=== PATIENT | male | born 1970 | race Caucasian/White ===

== ENCOUNTER 2023-07-04 09:14 | Outpatient (OUT) | payer OTHER, SELFPAY ==
--- NOTE | 2023-07-04 10:49 | CT_ITS ---
[address] [address] Patient Name: ALKA GASTELUM MRN: [id number] date: 1970 Sex: M Assigned Patient Location: CT Current Patient Location: Accession/Order Number: [id number] Exam Date: 07/04/2023 10:32 Report Date: 07/05/2023 08:14 At the request of: KATE CHERRY Procedure: CT abdomen pelvis wo/w con EXAMINATION: CT abdomen pelvis wo/w con HISTORY: Malignant neoplasm of kidney excluding renal pelvis C54.9 COMPARISON: TECHNIQUE: Axial, Coronal, and Sagittal images were created without and with non-ionic intravenous contrast material. Dose reduction techniques were achieved by using automated exposure control and/or adjustment of mA and/or kV according to patient size and/or use of iterative reconstruction technique. FINDINGS: LUNG BASES: No visible pulmonary or pleural disease. LIVER: Diffuse hypoattenuation consistent with hepatic steatosis. No focal mass BILIARY: No dilatation or calcification. PANCREAS: No lesion, fluid collection, ductal dilatation, or atrophy. SPLEEN: No enlargement or focal lesion. ADRENALS: No mass or enlargement. KIDNEYS: Normal right. Contour deformity of the left consistent with wedge nephrectomy. No new mass observed. No hydronephrosis or obstructing nephrolithiasis BOWEL/MESENTERY: Nonobstructive bowel gas pattern. Moderate hiatal hernia. AORTA/VASCULAR: No aortic aneurysm. Mild calcific atherosclerosis RETROPERITONEUM: No mass or adenopathy. LYMPH NODES: No adenopathy. URINARY BLADDER: No visible focal wall thickening, lesion, or calculus. PELVIC ORGANS: Central prostate calcifications ABDOMINAL WALL: No mass or hernia. BONES: No bony lesion or fracture. OTHER: Negative. CT/CT abdomen pelvis wo/w con IMPRESSION: No new evidence of local recurrence or metastatic disease Electronically authenticated by: MEGHANN VITAL Date: 07/05/2023 08:14
== END 2023-07-04 09:15 | disposition home or self-care (01) ==
LOC: CT 09:14
PROVIDERS: PCP Family Medicine; Visit Provider Urology
DX: C64.9 Malignant neoplasm of unspecified kidney, except renal pelvis (principal)
CPT/HCPCS: 74178; Q9967

== ENCOUNTER 2023-07-31 16:48 | Outpatient (OUT) | payer OTHER, SELFPAY ==
--- NOTE | 2023-07-31 | XR_ITS ---
The [address] [address] Patient Name: ALKA GASTELUM MRN: [id number] date: 1970 Sex: M Assigned Patient Location: LAB Current Patient Location: Accession/Order Number: [id number] Exam Date: 07/31/2023 16:54 Report Date: 08/02/2023 09:30 At the request of: KATE CHERRY Procedure: XR chest 2V EXAMINATION: XR chest 2V HISTORY: Malignant neoplasm of kidney; COMPARISON: XR chest 06/22/2022 FINDINGS: LUNGS: No significant pulmonary parenchymal abnormalities. VASCULATURE: No increased pulmonary vasculature. PLEURA: No pneumothorax, effusion, or pleural thickening. CARDIAC: No cardiomegaly or cardiac silhouette abnormality. MEDIASTINUM: No visible mass or adenopathy. BONES: No fracture or visible bone lesion. OTHER: Negative. XR/XR chest 2V IMPRESSION: 1. No appreciable nodules or infiltrates. Stable chest. Electronically authenticated by: BABITA VALLADARES Date: 08/02/2023 09:30
--- OUTSIDE RECORDS SUMMARY | 2023-07-31 17:00 | XMS_ITS | CCD ---
Author Organization [facility] Care Team Providers Care Associate Spa Director Name Role Phone Patrick Terrell Primary Care Provider EDWIGE PATEL Referring Unavailable PATRICK TERRELL Primary Care Unavailable KATE RAM Referring Unavailable PATRICK TERRELL Primary Care Unavailable KATE RAM Admitting Unavailable KATE RAM Attending Unavailable PATRICK TERRELL Primary Care Unavailable PATRICK DAWSON Consulting Unavailable MEGHANN MAI Consulting Unavailable Lacey Luciano Unavailable RADHA, DR RAMOS Primary Care Unavailable SHAYLA ., DR BROTHERS Admitting Unavailable SHAYLA ., DR BROTHERS Attending Unavailable MILTON .JONATHON Consulting UnavailAMY Campoverde Consulting Unavailable MISC, DR ENRIQUEZ Admitting Unavailable MISJuliann, DR ENRIQUEZ Attending Unavailable RADHA, DR RAMOS Primary Care Unavailable MISC, DR ENRIQUEZ Consulting Unavailable EDITH CAMARA Consulting Unavailable MIKAELA LUCAS Consulting Unavailable MISC, DR ENRIQUEZ Admitting Unavailable MISC, DR ENRIQUEZ Attending Unavailable RADHA, DR RAMOS Primary Care Unavailable MISC, DR ENRIQUEZ Consulting Unavailable BABITA VALLADARES Consulting Unavailable AMY GUEVARA Consulting Unavailable Eladio Garcia MD Primary Care Provider [phone] JANY MEDEIROS Attending Unavailable JANY MEDEIROS Attending Unavailable JANY MEDEIROS Attending Unavailable Medications Current Medications Medication Drug Class(es) Dates Sig (Normalized) Sig (Original) Acetaminophen (1 source) Start: 08-04-2019 acetaminophen (TYLENOL) tablet 650 mg Acetaminophen / oxyCODONE (3 sources) Opioid Agonist Start: 08-04-2019 oxyCODONE-acetaminop hen (PERCOCET) 5-325 MG per tablet 1 tablet Start: 08-04-2019 End: 08-09-2019 take 1 tablet by mouth every six hours as needed for pain oxyCODONE-acetaminophen (PERCOCET) 5-325 MG per tablet Indications: Cancer of kidney, left (HCC) Take 1 tablet by mouth every 6 hours as needed for Pain for up to 5 days. 30 tablet 0 08/04/2019 08/09/2019 Active acyclovir 800 mg oral tablet (6 sources) Herpesvirus Nucleoside Analog DNA Polymerase Inhibitor, Herpes Simplex Virus Nucleoside Analog DNA Polymerase Inhibitor, Herpes Zoster Virus Nucleoside Analog DNA Polymerase Inhibitor Start: 12-19-2022 take 1 tablet by mouth once daily in the morning acyclovir (Zovirax) 800 MG tablet Indications: Genital herpes simplex, unspecified site take 1 tablet by mouth every morning 30 tablet 0 12/19/2022 Active End: 08-05-2019 Acyclovir 800 MG (Prior Auth #:[id number]) Oral for 30 Active [id number] 200 actuat albuterol 0.09 mg/actuat metered dose inhaler (1 source) beta2-Adrenergic Agonist Start: 01-28-2021 take 2 puff(s) by inhalation four times daily as needed Albuterol Sulfate HFA 108 (90 Base) MCG/ACT 2 puffs Inhalation qid prn Jan, Active aspirin 81 mg chewable tablet (7 sources) Platelet Aggregation Inhibitor, Nonsteroidal Anti-inflammatory Drug Start: 08-05-2019 aspirin chewable tablet 81 mg aspirin 81 MG EC tablet 1 (one) time each day at the same time 0 Active Baby Aspirin Act vinnie azithromycin 250 mg oral tablet (7 sources) Macrolide Antimicrobial Start: 12-20-2022 End: 03-22-2023 azithromycin (Zithromax) 250 MG tablet Indications: COVID-19 2 tabs x 1 day, 1 tab daily x 4 days 6 tablet 0 01/25/2023 03/22/2023 Discontinued (Other) Start: 01-28-2021 Zithromax 250 MG 2 tablet on the first day, then 1 tablet daily for 4 days Orally Once a day for 5 day(s) Jan, Active cholecalciferol 0.05 mg oral tablet (3 sources) Vitamin D cholecalciferol (Vitamin D-3) 50 MCG (1999 UT) tablet 1 (one) time each day at the same time 0 Active 24 hr dilTIAZem hydrochloride 180 mg extended release oral capsule (9 sources) Calcium Channel Linette Start: 01-06-20 23 take 1 capsule by mouth in the morning, then take 1 capsule by mouth every twenty-four hours dilTIAZem CD (Cardizem CD) 180 MG 24 hr capsule Take 180 mg by mouth in the morning. 0 01/05/2023 Active Start: 08-05-2019 dilTIAZem (CAR DIZEM CD) extended release capsule 180 mg docusate sodium 100 mg oral capsule (3 sources) Start: 08-04-2019 End: 09-03-2019 take 100 mg by mouth twice daily 100 mg, Oral, 2 TIMES DAILY, First dose on Sun08/04/19 at 1430 Do not crush or break. 1 ml hydrALAZINE hydrochloride 20 mg/ml injection (1 source) Arteriolar Vasodilator Start: 08-04-2019 hydrALAZINE (APRESOLINE) injection 10 mg losartan potassium 100 mg oral tablet (8 sources) Angiotensin 2 Receptor Linette Start: 08-05-2019 losartan (COZAAR) tablet 100 mg 24 hr metoprolol succinate 25 mg extended release oral tablet (8 sources) beta-Adrenergic Linette Start: 01-10-2023 take 1 tablet by mouth every twenty-four hours in the morning metoprolol succinate XL (Toprol-XL) 25 MG 24 hr tablet Indications: Essential hypertension, benign (CMS/HCC) Take 1 tablet (25 mg) by mouth in the morning and 1 tablet (25 mg) before bedtime. 180 tablet 0 01/10/2023 Active Start: 08-05-2019 metoprolol suc cinate (TOPROL XL) extended release tablet 25 mg take 1 tablet by twice daily metoprolol succinate (TOPROL XL) 50 MG extended release tablet Take 50 mg by mouth 2 times daily 0 Active morphine (PF) injection 2 mg (1 source) Start: 08-04-2019 morphine (PF) injection 2 mg 24 hr nicotine 0.292 mg/hr transdermal system (1 source) Cholinergic Nicotinic Agonist Start: 08-04-2019 nicotine (NICODERM CQ) 7 MG/24HR 1 patch [place] 3-6-9 capsule (3 sources) [place] 3-6-9 caps ule as directed Orally 0 Active omeprazole 20 mg delayed release oral capsule (8 sources) Proton Pump Inhibitor omeprazole (PriLOSEC) [address] capsule 1 (one) time each day at the same time 0 Active Omeprazole Activ e End: 08-04-2019 take 1 capsule by mouth once daily omeprazole (PRILOSEC) 10 MG delayed release capsule Take 10 mg by mouth daily 0 08/04/2019 Discontinued (Medication Clarified) End: 08-05-2019 take 1 tablet by mouth once daily omeprazole (PRILOSEC OTC) 20 MG tablet Take 20 mg by mouth daily 0 08/05/2019 Discontinued (Stop Taking at Discharge) 2 ml ondansetron 2 mg/ml injection (1 source) Serotonin-3 Receptor Antagonist Start: 08-04-2019 4 mg, Intravenous, EVERY 6 HOURS PRN, Nausea, Starting Sun08/04/19 at 1409 pantoprazole 40 mg delayed release oral tablet (1 source) Proton Pump Inhibitor Start: 08-05-2019 take 40 mg by mouth once daily before breakfast 40 mg, Oral, DAILY BEFORE BREAKFAST, First dose on Sun08/05/19 at 0700 Do not crush or break. Substituted for Omeprazole (PRILOSEC). predniSONE 20 mg oral tablet (1 source) Start: 01-28-2021 take 1 tablet by mouth every twelve hours predniSONE 20 MG 1 tablet Orally bid for 5 day(s) Jan, Active 3 ml sodium chloride 9 mg/ml injection (3 sources) Start: 08-04-2019 10 mL, Intravenous, EVERY 12 HOURS SCHEDULED (2 times per day), First dose on Sun08/04/19 at 2100 Start: 08-04-2019 take 10 mL intraveno us route once as needed 10 mL, Intravenous, PRN, Line Care, After every IV line use, Starting Sun08/04/19 at 1409 Start: 08-04-2019 End: 08-05-2019 Intravenous, at 125 mL/hr, CONTINUOUS, Starting Sun08/04/19 at 1430 Completed/Discontinued Medications Medication Drug Class(es) Dates Sig (Normalized) Sig (Original) calcium chloride 0.0014 meq/ml / potassium chloride 0.004 meq/ml / sodium chloride 0.103 meq/ml / sodium lactate 0.028 meq/ml injectable solution (1 source) Start: 08-05-2019 End: 08-04-2019 lactated ringers infusion Start: 08-05-2019 End: 08-04-2019 lactated ringers infusion ceFAZolin (ANCEF) 1 g in dextrose 5 % 50 mL IVPB (mini-bag) (1 source) Start: 08-04-2019 End: 08-05-2019 1 g, Intravenous, EVERY 8 HOURS, 3 doses, First dose on Sun08/04/19 at 1500, Last dose on Sun08/05/19 at 0700 2 ml fentaNYL 0.05 mg/ml injection (1 source) Opioid Agonist Start: 08-04-2019 End: 08-04-2019 fentaNYL (SUBLIMAZE) injection 25 mcg 1 ml heparin sodium, porcine 5000 unt/ml prefilled syringe (1 source) Unfractionated Heparin, Anti-coagulant Start: 08-04-2019 End: 08-04-2019 heparin (porcine) injection 5,000 Units Start: 08-04-2019 End: 08-04-2019 heparin (porcine) injection 5,000 Units 1 ml HYDROmorphone hydrochloride 2 mg/ml cartridge (1 source) Opioid Agonist Start: 08-04-2019 End: 08-04-2019 HYDROmorphone (DILAUDID) injection 0.25 mg methylPREDNISolone 4 mg oral tablet (1 source) Corticosteroid Start: 03-20-2020 Medrol (Jimmie) 4 MG half of daily dose in the morning with food and the rest at night with food Orally Mar, Not-Taking traZODone hydrochloride 50 mg oral tablet (2 sources) Serotonin Reuptake Inhibitor End: 08-04-2019 take 1 tablet by mouth once daily traZODone (DESYREL) 50 MG tablet Take 50 mg by mouth nightly 0 08/04/2019 Discontinued (Patient Choice) Problems Active Problems Problem Classification Problem Date Documented Date Episodic/Chronic Cancer of kidney and renal pelvis (10 sources) Malignant tumor of kidney; Translations: [Malignant neoplasm of unspecified kidney, except renal pelvis] Onset: 08-04-2019 08-04-2019 Chronic Disorders of lipid metabolism (3 sources) Hyperlipidemia; Translations: [Hyperlipidemia, unspecified] Onset: 01-24-2023 01-24-2023 Chronic Esophageal disorders (6 sources) Gastroesophageal reflux disease; Translations: [Gastro-esophageal reflux disease without esophagitis] Onset: 01-24-2023 08-04-2019 Chronic Essential hypertension (6 sources) Hypertensive disorder; Translations: [Essential hypertension] Onset: 01-24-2023 08-04-2019 Chronic Other endocrine disorders (3 sources) Hypoglycemia; Translations: [Hypoglycemia, unspecified] Onset: 01-24-2023 01-24-2023 Chronic Other male genital disorders (2 sources) Disorder of penis; Translations: [Other specified disorders of penis] Onset: 03-21-2023 03-21-2023 Chronic Other upper respiratory infections (3 sources) Sinusitis; Translations: [Chronic sinusitis, unspecified] Onset: 01-24-2023 01-24-2023 Chronic Residual codes; unclassified (8 sources) Obstructive sleep apnea syndrome; Translations: [Obstructive sleep apnea (adult) (pediatric)] Onset: 01-24-2023 08-04-2019 Chronic Residual codes; unclassified (5 sources) Insomnia; Translations: [Insomnia, unspecified] Onset: 03-21-2023 08-04-2019 Episodic Substance-related disorders (6 sources) Nicotine withdrawal; Translations: [Nicotine dependence, other tobacco product, uncomplicated] Onset: 08-04-2019 08-04-2019 Chronic Viral infection (3 sources) Genital herpes simplex; Translations: [Herpesviral infection of urogenital system, unspecified] Onset: 01-24-2023 01-24-2023 Chronic Past or Other Problems Problem Classification Problem Date Documented Da te Episodic/Chronic Genitourinary symptoms and ill-defined conditions (1 source) Hematuria, unspecified; Translations: [HEMATURIA UNSPECIFIED] Onset: 01-12-2022 Episodic Immunizations and screening for infectious disease (1 source) Contact with and (suspected) exposure to other viral communicable diseases Onset: 01-28-2021 Resolved: 01-28-2021 Episodic Other aftercare (1 source) long-term (current) use of aspirin; Translations: [CUSTODIAL CURRENT USE OF ASPIRIN] Onset: 01-12-2022 Episodic Other aftercare (1 source) Other skilled nursing (current) drug therapy; Translations: [OTH PUBLIC HOUSING INTERVIEWER CURRENT DRUG THERAPY] Onset: 01-12-2022 Episodic Other upper respiratory infections (1 source) Acute sinusitis, unspecified; Translations: [ACUTE SINUSITIS UNSPECIFIED] Onset: 01-12-2022 Episodic Residual codes; unclassified (5 sources) Chews tobacco ; Translations: [Tobacco use] Onset: 08-04-2019 08-04-2019 Episodic Spondylosis; intervertebral disc disorders; other back problems (4 sources) Cervicalgia; Translations: [CERVICALGIA] Onset: 01-10-2022 Episodic Viral infection (1 source) COVID-19 Onset: 01-28-2021 Resolved: 01-28-2021 Results Test Name Value Interpretation Reference Range Facility CT ABD/PELV W CONon 06-23-19 CT ABD/PELV W CON EXAM: CT ABD/PELV W CON HISTORY: Primary malignant neoplasm of kidney COMPARISON: 07/14/2021 TECHNIQUE: Axial CT imaging was performed through the abdomen and pelvis with intravenous contrast. Multiplanar reformats were performed. Dose reduction techniques were achieved by using automated exposure control and/or adjustment of mA and/or kV according to patient size and/or use of iterative reconstruction technique. FINDINGS: Lung bases: Lung bases are clear. No pleural effusion. GI upper: Moderate hiatal hernia. Liver: Hepatic steatosis. Normal size and contour. Gallbladder: No significant abnormality. No cholelithiasis. Biliary system: No intra or extrahepatic biliary ductal dilatation. Spleen: Normal size. Pancreas: Unremarkable. Adrenal glands: Normal adrenal glands. Kidneys/ureters: Normal contours. No hydronephrosis. No nephrolithiasis or ureterolithiasis. Status post left renal wedge resection with cortical scarring, postsurgical changes. No evidence of tumor recurrence at the surgical bed. On delayed phase, no filling defect is seen in the collecting system. Vessels: No aneurysm. Lymph Nodes: No lymphadenopathy. Small bowel: No wall thickening or dilatation. Colon: No wall thickening or dilatation. Appendix: No findings of appendicitis. Peritoneal cavity: No free fluid or pneumoperitoneum. Lower : The urinary bladder is unremarkable. Bones: No acute bony abnormality. Soft tissues: No acute finding. Additional findings: None. IMPRESSION: No evidence of tumor recurrence or metastasis. No abnormal lymphadenopathy. Moderate hiatal hernia. Electronically authenticated by: MIAKELA LUCAS Date: 2022-06-22 13:36 Normal [facility] XR CHEST 2 Von 06-22-2022 XR CHEST 2 V EXAM: XR CHEST 2 V HISTORY: Primary malignant neoplasm of kidney COMPARISON: None. TECHNIQUE: AP view of the chest. FINDINGS: The cardiomediastinal silhouette is normal. The lungs are clear. There is no pneumothorax. No pleural effusion is noted. The osseous structures are intact. IMPRESSION: No acute cardiopulmonary process. Probable esophageal hiatal hernia. Electronically authenticated by: EDITH JAX Date: 2022-06-22 13:47 Normal [facility] BNPon 01-10-2022 Natriuretic peptide B (Bld) [Mass/Vol] 14.0 pg/mL Normal <=900.0 [facility] Comment on above: Performed By: #### P TT, PT #### [facility] [address] [place] [address] Dr. Katelyn Forbes CBC AUTO DIFFon 01-10-2022 BASO # 0.1 103/ul Normal 0.0-0.1 [facility] Comment on above: Performed By: #### C BC #### [facility] [address] [place] [address] Dr. Katelyn Forbes Basophils/100 WBC (Bld) 0.7 % Normal 0.2-2.0 [facility] Comment on above: Performed By: #### C BC #### [facility] [address] [place] [address] Dr. Katelyn Forbes EO # 0.3 103/ul Normal 0.0-0.7 [facility] Comment on above: Performed By: #### C BC #### [facility] [address] [place] [address] Dr. Katelyn Forbes Eosinophils/100 WBC (Bld) 3.0 % Normal 0.9-7.0 [facility] Comment on above: Performed By: #### C BC #### [facility] [address] [place] [address] Dr. Katelyn Forbes Erythrocyte distribution width (RBC) [Ratio] 12.5 % Normal 11.0-15.0 [facility] Comment on above: Performed By: #### C BC #### [facility] [address] [place] [address] Dr. Katelyn Forbes Hematocrit (Bld) [Volume fraction] 39.8 % Critically low 42.0-54.0 [facility] Comment on above: Performed By: #### C BC #### [facility] [address] [place] [address] Dr. Katelyn Forbes Hemoglobin (Bld) [Mass/Vol] 13.9 g/dL Critically low 14.0-18.0 [facility] Comment on above: Performed By: #### C BC #### [facility] [address] [place] [address] Dr. Katelyn Forbes IG # 0.02 10e3/ul Normal 0.00-0.03 [facility] Comment on above: Performed By: #### C BC #### [facility] [address] [place] [address] Dr. Katelyn Forbes IG % 0.2 % Normal 0.0-0.5 [facility] Comment on above: Performed By: #### C BC #### [facility] [address] [place] [address] Dr. Katelyn Forbes LYMPH # 3.2 103/ul Normal 1.2-3.8 [facility] Comment on above: Performed By: #### C BC #### [facility] [address] [place] [address] Dr. Katelyn Forbes Lymphocytes/100 WBC (Bld) 39.1 % Normal 20.5-60.0 [facility] Comment on above: Performed By: #### C BC #### [facility] [address] [place] [address] Dr. Katelyn Forbes MANUAL DIFF REQ NO Normal [facility] Comment on above: Performed By: #### C BC #### [facility] [address] [place] [address] Dr. Katelyn Forbes MCH (RBC) [Entitic mass] 29.1 pg Normal 25.9-34.0 [facility] Comment on above: Performed By: #### C BC #### [facility] [address] [place] [address] Dr. Katelyn Forbes MCHC (RBC) [Mass/Vol] 34.9 g/dL Normal 29.9-35.2 [facility] Comment on above: Performed By: #### C BC #### [facility] [address] [place] [address] Dr. Katelyn Forbes MCV (RBC) [Entitic vol] 83.3 fL Normal 80.0-94.0 [facility] Comment on above: Performed By: #### C BC #### [facility] [address] [place] [address] Dr. Katelyn Forbes MONO # 0.7 103/ul Normal 0.3-0.8 [facility] Comment on above: Performed By: #### C BC #### [facility] [address] [place] [address] Dr. Katelyn Forbes Monocytes/100 WBC (Bld) 9.0 % Normal 1.7-12.0 [facility] Comment on above: Performed By: #### C BC #### [facility] [address] [place] [address] Dr. Katelyn Forbes NEUT # 3.9 103/ul Normal 1.4-6.5 [facility] Comment on above: Performed By: #### C BC #### [facility] [address] [place] [address] Dr. Katelyn Forbes Neutrophils/100 WBC (Bld) 48.0 % Normal 43.0-75.0 [facility] Comment on above: Performed By: #### C BC #### [facility] [address] [place] [address] Dr. Katelyn Forbes Platelet mean volume (Bld) [Entitic vol] 8.8 fL Critically low 9.5-13.5 [facility] Comment on above: Performed By: #### C BC #### [facility] [address] [place] [address] Dr. Katelyn Forbes PLT 227 103/ul Normal 150-450 [facility] Comment on above: Performed By: #### C BC #### [facility] [address] [place] [address] Dr. Katelyn Forbes RBC 4.78 106/ul Normal 4.70-6.10 [facility] Comment on above: Performed By: #### C BC #### [facility] [address] [place] [address] Dr. Katelyn Forbes WBC 8.2 103/ul Normal 4.0-11.0 [facility] Comment on above: Performed By: #### C BC #### [facility] [address] [address] [address] HEAD WO CONon 01-10-2022 CT HEAD WO CON EXAMINATION: CT HEAD WO CON HISTORY: HEADACHE for 3 weeks. COMPARISON: None. TECHNIQUE: CT examination of the head without IV contrast. Sagittal and coronal reconstructions were obtained. Dose reduction techniques were achieved by using automated exposure control and/or adjustment of mA and/or kV according to patient size and/or use of iterative reconstruction technique. FINDINGS: The ventricles are not enlarged, the lateral ventricles are slightly asymmetric but within normal variation, and the third ventricles in the midline. The sylvian fissures and cortical sulci are unremarkable. There is a small low attenuation fluid collection seen in the insular temporal lobe on the left as best seen in image 18 series 5, and image 29 of series 6. There is no evidence of an intracranial hemorrhage, mass lesion or apparent acute infarct. The cerebellum and visualized brainstem are intact. The paranasal sinuses are relatively well-developed. There is evidence of acute sinusitis with fluid and air bubbles in the right maxillary sinus. Several of the ethmoid air cells are completely opacified with mucosal thickening in the remainder. A small amount of mucosal thickening extends into the frontal sinuses on the right. The middle ears are aerated. The mastoid sinuses are clear. There is no apparent skull fracture. IMPRESSION: There is no evidence of an intracranial hemorrhage, mass lesion or apparent acute infarct. A small lesion in the insular temporal lobe on the left may be a small remote infarct or possibly prominence of the perivascular spaces. There is evidence of acute and chronic sinusitis involving the right maxillary sinus and several of the ethmoid air cells. Mucosal thickening is seen in other ethmoid air cells, extending into the frontal sinuses. There is no evidence of a skull fracture. Direct comparison with a previous study would be helpful in determining the chronicity of these findings. Electronically authenticated by: AMY GUEVARA Date: 2022-01-10 16:42 Normal [facility] PROF 14(COMP METB)on 022 Albumin [Mass/Vol] 3.9 g/dL Normal 3.4-5.0 [facility] Comment on above: Performed By: #### C MP, TSH, HSTROPN, BNP #### [facility] [address] [place] [address] Dr. Katelyn Forbes Albumin/Globulin [Mass ratio] 1.1 {ratio} Normal [facility] Comment on above: Performed By: #### C MP, TSH, HSTROPN, BNP #### [facility] [address] [place] [address] Dr. Katelyn Forbes ALP [Catalytic activity/Vol] 84 U/L Normal 46-116 [facility] Comment on above: Performed By: #### C MP, TSH, HSTROPN, BNP #### [facility] [address] [place] [address] Dr. Katelyn Forbes ALT [Catalytic activity/Vol] 57 U/L Normal 16-63 [facility] Comment on above: Performed By: #### C MP, TSH, HSTROPN, BNP #### [facility] [address] [place] [address] Dr. Katelyn Forbes Anion gap [Moles/Vol] 10.0 mmol/L Normal [facility] Comment on above: Performed By: #### C MP, TSH, HSTROPN, BNP #### [facility] [address] [place] [address] Dr. Katelyn Forbes AST [Catalytic activity/Vol] 23 U/L Normal 15-37 [facility] Comment on above: Performed By: #### C MP, TSH, HSTROPN, BNP #### [facility] [address] [place] [address] Dr. Katelyn Forbes Bilirubin [Mass/Vol] 0.3 mg/dL Normal 0.2-1.0 [facility] Comment on above: Performed By: #### C MP, TSH, HSTROPN, BNP #### [facility] [address] [place] [address] Dr. Katelyn Forbes Calcium [Mass/Vol] 8.5 mg/dL Normal 8.5-10.1 [facility] Comment on above: Performed By: #### C MP, TSH, HSTROPN, BNP #### [facility] [address] [place] [address] Dr. Katelyn Forbes [place] [Moles/Vol] 103 mmol/L Normal 98-107 [facility] Comment on above: Performed By: #### C MP, TSH, HSTROPN, BNP #### [facility] [address] [place] [address] Dr. Katelyn Forbes CO2 [Moles/Vol] 28.9 mmol/L Normal 21.0-32.0 [facility] Comment on above: Performed By: #### C MP, TSH, HSTROPN, BNP #### [facility] [address] [address] [address] Katelyn Forbes Creatinine [Mass/Vol] 0.95 mg/dL Normal 0.70-1.30 [facility] Comment on above: Performed By: #### C MP, TSH, HSTROPN, BNP #### [facility] [address] [place] [address] Dr. Katelyn Forbes EGFR-AF [place] >60 Normal >=60 [facility] Comment on above: Performed By: #### C MP, TSH, HSTROPN, BNP #### [facility] [address] [place] [address] Dr. Katelyn Forbes EGFR-NON AF GREENLANDIC >60 Normal >=60 [facility] Comment on above: Performed By: #### C MP, TSH, HSTROPN, BNP #### [facility] [address] [place] [address] Dr. Katelyn Forbes Globulin (S) [Mass/Vol] 3.4 g/dL Normal [facility] Comment on above: Performed By: #### C MP, TSH, HSTROPN, BNP #### [facility] [address] [place] [address] Dr. Katelyn Forbes Glucose [Mass/Vol] 103 mg/dL Normal 74-106 [facility] Comment on above: Performed By: #### C MP, TSH, HSTROPN, BNP #### [facility] [address] [address] [address] Katelyn Forbes Potassium [Moles/Vol] 3.9 mmol/L Normal 3.5-5.1 [facility] Comment on above: Performed By: #### C MP, TSH, HSTROPN, BNP #### [facility] [address] [address] [address] Katelyn Forbes Protein [Mass/Vol] 7.3 g/dL Normal 6.4-8.2 [facility] Comment on above: Performed By: #### C MP, TSH, HSTROPN, BNP #### [facility] [address] [place] [address] Dr. Katelyn Forbes Sodium [Moles/Vol] 138 mmol/L Normal 136-145 [facility] Comment on above: Performed By: #### C MP, TSH, HSTROPN, BNP #### [facility] [address] [place] [address] Dr. Katelyn Forbes Urea nitrogen [Mass/Vol] 23.0 mg/dL Critically high 7.0-18.0 [facility] Comment on above: Performed By: #### C MP, TSH, HSTROPN, BNP #### [facility] [address] [place] [address] Dr. Katelyn Forbes Urea nitrogen/Creatinine [Mass ratio] 24.2 mg/mg Normal [facility] Comment on above: Performed By: #### C MP, TSH, HSTROPN, BNP #### [facility] [address] [place] [address] Dr. Katelyn Forbes PROTIMEon 01-10-2022 INR Coag (PPP) [Relative time] 1.02 {INR} Normal [facility] Comment on above: Performed By: #### P TT, PT #### [facility] [address] [place] [address] Dr. Katelyn Forbes INR GUIDELINES SEE BELOW Normal [facility] Comment on above: Result Comment: PETRA RED INR: 2.0 - 3.0 CONDITIONS NOT LISTED BELOW 2.5 - 3.5 FOR PROSTHETIC HEART VALVE REPLACEMENT 2.5 - 3.5 RECURRENT THROMBOSIS Performed By: #### P TT, PT #### [facility] [address] [place] [address] Dr. Katelyn Forbes PT Coag (PPP) [Time] 11.0 s Normal 9.0-11.6 [facility] Comment on above: Performed By: #### P TT, PT #### [facility] [address] [address] [address] Katelyn Forbes PTTon 01-10-2022 aPTT Coag (Bld) [Time] 25.0 s Normal 22.3-36.2 [facility] Comment on above: Performed By: #### P TT, PT #### [facility] [address] [place] [address] Dr. Katelyn Forbes TROPONIN, HIGH SENSITIVITYon 01-10-2022 HSTROP 6.1 pg/mL Normal 4.0-76.1 [facility] Comment on above: Result Comment: CUT- OFF POINTS HAVE BEEN ESTABLISHED BASED ON THE FOURTH UNIVERSAL DEFINITIONS OF MYOCARDIAL INFARCTION. THE UPPER REFERENCE LIMIT (URL) OF TROPONIN, DEFINED THE 99TH PERCENTILE OF cTnI DISTRIBUTION IN A REFERENCE POPULATION, HAS BEEN CONFIRMED THE DECISION THRESHOLD FOR [place] DIAGNOSIS. Performed By: #### P TT, PT #### [facility] [address] [place] [address] Dr. Katelyn Forbes TSHon 01-10-2022 TSH 0.737 uIU/mL Normal 0.358-3.740 [facility] Comment on above: Performed By: #### P TT, PT #### [facility] [address] [place], [place] [id number] Dr. Katelyn Forbes XR CHEST 1 Von 01-10-2022 XR CHEST 1 V EXAM: XR CHEST 1 V a t 1559 hours HISTORY: CHEST PAIN, UNSPECIFIED COMPARISON: 07/14/2021 TECHNIQUE: AP upright portable chest x-ray FINDINGS: The heart is not enlarged and the vasculature is not distended. No acute infiltrate, effusion or pneumothorax is identified. The osseous structures are intact. A small hiatal hernia is again noted. IMPRESSION: No acute infiltrate or evidence of cardiac decompensation. The overall appearance of the chest is unchanged. Electronically authenticated by: AMY GUEVARA Date: 2022-01-10 16:36 Normal [facility] CT ABD/PELV WO W CONon 07-14 CT ABD/PELV WO W CON EXAMINATION: CT ABD/PELV WO W CON HISTORY: Primary malignant neoplasm of kidney , follow-up COMPARISON: CT abdomen pelvis 03/24/2020 TECHNIQUE: Axial, Coronal, and Sagittal images were created without and with IV contrast. Dose reduction techniques were achieved by using automated exposure control and/or adjustment of mA and/or kV according to patient size and/or use of iterative reconstruction technique. FINDINGS: LUNG BASES: No visible pulmonary or pleural disease. LIVER: No enlargement, atrophy, abnormal density, or significant focal lesion. BILIARY: No dilatation or calcification. PANCREAS: No lesion, fluid collection, ductal dilatation, or atrophy. SPLEEN: No enlargement or focal lesion. ADRENALS: No mass or enlargement. KIDNEYS: Stable wedge resection from lower pole lateral aspect of left kidney. No mass, obstruction, or calcification. BOWEL/MESENTERY: Large hiatal hernia with at least half of the stomach above the diaphragm. No visible mass, obstruction, or bowel wall thickening. AORTA/VASCULAR: No aneurysm or dissection. RETROPERITONEUM: No mass or adenopathy. LYMPH NODES: No adenopathy. URINARY BLADDER: No visible focal wall thickening, lesion, or calculus. PELVIC ORGANS: No visible mass. Pelvic organs appropriate for patient age. ABDOMINAL WALL: Tiny fat filled supraumbilical midline hernia. BONES: No bony lesion or fracture. OTHER: Negative. IMPRESSION: 1. Prior wedge resection of left kidney with stable surgical changes. No findings to suggest recurrent or metastatic disease. 2. Large hiatal hernia. Electronically authenticated by: BABITA VALLADARES Date: 2021-07-14 16:19 Normal [facility] XR CHEST 2 Von 07-14-2021 XR CHEST 2 V EXAM: XR CHEST 2 V HISTORY: Primary malignant neoplasm of kidney COMPARISON: 05/30/2010. TECHNIQUE: PA and lateral chest x-ray FINDINGS: The heart is not enlarged and the vasculature is not distended. No acute infiltrate, effusion or pneumothorax is identified. Opacity is seen projecting over the lower heart which has the appearance of a hiatal hernia. IMPRESSION: No acute infiltrate or evidence of cardiac decompensation. A hiatal hernia is now present, and the overall appearance of the chest is otherwise unchanged. Electronically authenticated by: AMY GUEVARA Date: 2021-07-14 14:18 Normal [facility] Complete Blood Count with Au to Diffon 04-14-2022 Basophils (Bld) [#/Vol] 0.08 10*3/uL Normal 0.00-0.20 [facility] Comment on above: Performed By: #### L IPD, CMP, CBCAD #### [facility] [address], [place] [id number] Basophils/100 WBC (Bld) 1.3 % Normal [facility] Comment on above: Performed By: #### L IPD, CMP, CBCAD #### [facility] [address], [place] [id number] Eosinophils (Bld) [#/Vol] 0.29 10*3/uL Normal 0.02-0.50 [facility] Comment on above: Performed By: #### L IPD CMP, CBCAD #### [facility] [address], [place] [id number] Eosinophils/100 WBC (Bld) 4.7 % Normal [facility] Comment on above: Performed By: #### L IPD CMP, CBCAD #### [facility] [address], [place] [id number] Erythrocyte distribution width (RBC) [Ratio] 12.8 % Normal 11.0-15.0 [facility] Comment on above: Performed By: #### L IPD CMP, CBCAD #### [facility] [address], [place] [id number] Hematocrit (Bld) [Volume fraction] 42.3 % Normal 38.5-50.0 [facility] Comment on above: Performed By: #### L IPD, CMP, CBCAD #### [facility] [address], [place] [id number] Hemoglobin (Bld) [Mass/Vol] 14.2 g/dL Normal 13.0-17.1 [facility] Comment on above: Performed By: #### L IPD, CMP, CBCAD #### [facility] [address], [place] [id number] Lymphocytes (Bld) [#/Vol] 2.8 10*3/uL Normal 0.9-3.9 [facility] Comment on above: Performed By: #### L IPD, CMP, CBCAD #### [facility] [address], [place] [id number] Lymphocytes/100 WBC (Bld) 45.9 % Normal [facility] Comment on above: Performed By: #### L IPD, CMP, CBCAD #### [facility] [address], [place] [id number] MCH (RBC) [Entitic mass] 28.6 pg Normal 27.0-33.0 [facility] Comment on above: Performed By: #### L IPD, CMP, CBCAD #### [facility] [address], [place] [id number] MCHC (RBC) [Mass/Vol] 33.6 g/dL Normal 32.0-36.0 [facility] Comment on above: Performed By: #### L IPD, CMP, CBCAD #### [facility] [address], [place] [id number] MCV (RBC) [Entitic vol] 85 fL Normal 80-100 [facility] Comment on above: Performed By: #### L IPD, CMP, CBCAD #### [facility] [address], [place] [id number] Monocytes (Bld) [#/Vol] 0.5 10*3/uL Normal 0.2-0.9 [facility] Comment on above: Performed By: #### L IPD, CMP, CBCAD #### [facility] [address], [place] [id number] Monocytes/100 WBC (Bld) 8.1 % Normal [facility] Comment on above: Performed By: #### L IPD, CMP, CBCAD #### [facility] [address], [place] [id number] Neutrophils (Bld) [#/Vol] 2.4 10*3/uL Normal 1.5-7.8 [facility] Comment on above: Performed By: #### L IPD, CMP, CBCAD #### [facility] [address], [place] [id number] Neutrophils/100 WBC (Bld) 39.8 % Normal [facility] Comment on above: Performed By: #### L IPD, CMP, CBCAD #### [facility] [address], [place] [id number] Platelet mean volume (Bld) [Entitic vol] 9.60 fL Normal 7.50-12.50 [facility] Comment on above: Performed By: #### L IPD, CMP, CBCAD #### [facility] [address], [place] [id number] Platelets (Bld) [#/Vol] 233 10*3/uL Normal 140-400 [facility] Comment on above: Performed By: #### L IPD, CMP, CBCAD #### [facility] [address], [place] [id number] RBC (Bld) [#/Vol] 4.96 10*6/uL Normal 4.20-5.80 [facility] Comment on above: Performed By: #### L IPD, CMP, CBCAD #### [facility] [address], [place] [id number] RDW-SD 39.5 fL Normal 37.0-50.0 [facility] Comment on above: Performed By: #### L IPD, CMP, CBCAD #### [facility] [address], [place] [id number] WBC (Bld) [#/Vol] 6.1 10*3/uL Normal 3.8-11.0 [facility] Comment on above: Performed By: #### L IPD, CMP, CBCAD #### [facility] [address], [place] [id number] Comprehensive Metabolic Pane gary 05-26-2021 Albumin [Mass/Vol] 4.3 g/dL Normal 3.6-5.1 [facility] Comment on above: Performed By: #### L IPD, CMP, CBCAD #### [facility] [address], [place] [id number] Albumin/Globulin [Mass ratio] 2.0 {ratio} Normal 1.0-2.5 [facility] Comment on above: Performed By: #### L IPD, CMP, CBCAD #### [facility] [address], [place] [id number] ALP [Catalytic activity/Vol] 80 U/L Normal 40-129 [facility] Comment on above: Performed By: #### L IPD, CMP, CBCAD #### [facility] [address], [place] [id number] ALT [Catalytic activity/Vol] 39 U/L Normal 9-46 [facility] Comment on above: Result Comment: 01/12 Female reference range changed. Performed By: #### L IPD, CMP, CBCAD #### [facility] [address] [facility] [place] [id number] Anion gap [Moles/Vol] 16 mmol/L Normal 12-20 [facility] Comment on above: Result Comment: Effe ctive 02/17/2019 reference range changed. Performed By: #### L IPD, CMP, CBCAD #### [facility] [address], [place] [id number] AST [Catalytic activity/Vol] 20 U/L Normal 10-40 [facility] Comment on above: Performed By: #### L IPD, CMP, CBCAD #### [facility] [address], [place] [id number] Bilirubin [Mass/Vol] 0.35 mg/dL Normal 0.30-1.20 [facility] Comment on above: Performed By: #### L IPD, CMP, CBCAD #### [facility] [address], [place] [id number] BUN/CREA 20 Ratio Normal 6-22 [facility] Comment on above: Performed By: #### L IPD, CMP, CBCAD #### [facility] [address], [place] [id number] Calcium [Mass/Vol] 9.3 mg/dL Normal 8.6-10.2 [facility] Comment on above: Performed By: #### L IPD, CMP, CBCAD #### [facility] [address] [facility] [place] [id number] Chloride [Moles/Vol] 106 mmol/L Normal 98-107 [facility] Comment on above: Performed By: #### L IPD, CMP, CBCAD #### [facility] [address], [place] [id number] CO2 [Moles/Vol] 25 mmol/L Normal 20-31 [place] [facility] Comment on above: Performed By: #### L IPD, CMP, CBCAD #### [facility] [address], [place] [id number] Creatinine [Mass/Vol] 0.9 mg/dL Normal 0.7-1.4 [facility] Comment on above: Performed By: #### L IPD, CMP, CBCAD #### [facility] [address], [place] [id number] eGFRAA 115 mL/min/1.73m2 Normal >60 [facility] Comment on above: Performed By: #### L IPD, CMP, CBCAD #### [facility] [address], [place] [id number] eGFRNAA 95 mL/min/1.73m2 Normal >60 [facility] Comment on above: Performed By: #### L IPD, CMP, CBCAD #### [facility] [address], [place] [id number] Globulin (S) [Mass/Vol] 2.2 g/dL Normal 1.9-3.7 [facility] Comment on above: Performed By: #### L IPD, CMP, CBCAD #### [facility] [address], [place] [id number] Glucose [Mass/Vol] 111 mg/dL High 65-99 [facility] Comment on above: Result Comment: For FASTING Glucose --- ADA reference ranges: Normal 65-99 mg/dl Prediabetes 100-125 Diabetes >/= 126 Performed By: #### L IPD, CMP, CBCAD #### [facility] [address], [place] [id number] Potassium [Moles/Vol] 4.3 mmol/L Normal 3.5-5.5 [facility] Comment on above: Performed By: #### L IPD, CMP, CBCAD #### [facility] [address], [place] [id number] Protein [Mass/Vol] 6.5 g/dL Normal 6.1-8.1 [employer] [place] [facility] Comment on above: Performed By: #### L IPD, CMP, CBCAD #### [facility] [address], [place] [id number] Sodium [Moles/Vol] 142 mmol/L Normal 135-146 [facility] Comment on above: Performed By: #### L IPD, CMP, CBCAD #### [facility] [address], [place] [id number] Urea nitrogen [Mass/Vol] 17 mg/dL Normal 7-25 [facility] Comment on above: Performed By: #### L IPD, CMP, CBCAD #### [facility] [address], [place] [id number] Hemoglobin A1Con 05-26-2021 EAG 122.63 Normal [facility] Comment on above: Performed By: #### A 1C #### [facility] [address], [place] [id number] HbA1c (Bld) [Mass fraction] 5.9 % Normal 4.0-6.0 [facility] Comment on above: Performed By: #### A 1C #### [facility] [address], [place] [id number] Lipid Panelon 05-26-2021 Cholesterol [Mass/Vol] 173 mg/dL Normal 125-200 [facility] Comment on above: Result Comment: Low risk < 200mg/dL Borderline risk 201-239 mg/dl High risk > or equal to 240 Performed By: #### L IPD, CMP, CBCAD #### [facility] [address], [place] [id number] Cholesterol in HDL [Mass/Vol] 41 mg/dL Normal >40 [facility] Comment on above: Result Comment: High Cardiovascular Risk HDL <40 mg/dL Low Cardiovascular Risk HDL > or equal to 60 mg/dl Performed By: #### L IPD, CMP, CBCAD #### [facility] [address], [place] [id number] Cholesterol in LDL [Mass/Vol] 111 mg/dL Normal [facility] Comment on above: Result Comment: LDL ATP III CLASSIFICATION LDL less than 100 mg/dl Optimal LDL 100-129 mg/dl Near or above optimal LDL 130-159 Borderline high LDL 160-189 High LDL greater than 189 mg/dl Very High Performed By: #### L IPD, CMP, CBCAD #### [facility] [address], [place] [id number] Cholesterol in VLDL [Mass/Vol] 21 mg/dL Normal [facility] Comment on above: Performed By: #### L IPD, CMP, CBCAD #### [facility] [address], [place] [id number] Cholesterol.total/C holesterol in HDL [Mass ratio] 4 {ratio} Normal [facility] Comment on above: Performed By: #### L IPD, CMP, CBCAD #### [facility] [address], [place] [id number] Triglyceride [Mass/Vol] 107 mg/dL Normal 30-150 [facility] Comment on above: Result Comment: TRIG ATPIII CLASSIFICATIONS TRIG less than 150 mg/dl Normal TRIG 150-199 mg/dl Borderline High TRIG 200-500 mg/dl High TRIG greather than 500 mg/dl Very High Performed By: #### L IPD, CMP, CBCAD #### [facility] [address], [place] [id number] XR Foot Complete Left*on XR Foot Complete Left* HISTORY: Left foot pain FINDINGS: Mild arthritic changes involve the intertarsal and interphalangeal joints. No evidence of cortical or stress fracture is present. No focal soft tissue swelling is seen. No foreign body is visualized. IMPRESSION: 1. No cortical or stress fracture. 2. Minimal arthritis. Report reported and signed by Nikita Leyva on 05/24/2021 1218 Normal [facility] COVID Quick Testingon 2020 Result Positive path intelligence Other Coding Summaryon 03-25-2020 Coding Summary CODING DATE: 03/25/2020 [facility] STATUS: Home PAYOR: [employer] APC DESCRIPTION 5521 Level 1 Imaging without Contrast 5572 Level 2 Imaging with Contrast ADMIT DX: REASON FOR VISIT DX: C64.9 Malignant neoplasm of unspecified kidney, except renal pelvis FINAL DX: PRINCIPAL: C64.9 Malignant neoplasm of unspecified kidney, except renal pelvis SECONDARY: PYMT PROC APC STAT DESCRIPTION DOCTOR NAME DATE NOTE: The code number assigned matches the documented diagnosis and / or procedure in the patient's chart. However, the narrative phrase printed from the coding software may appear abbreviated, or result in slightly different terminology. Coded By: Josephine Mcfarland Date Saved: 03/25/2020 04:38 pm [facility] Consent Formson 03-25-2020 Consent Forms [id number] .00OTGTIFF [facility] Medication Managementon 03-15 Medication Management [id number]/ Contras ton 03-24-2020 CT Abdomen/Pelvis w/ Contrast EXAMINATION: CT Abdomen/Pelvis w/ Contrast HISTORY: Malignant neoplasm of unspecified kidney, except renal pelvis. COMPARISON: Report from CT abdomen and CT pelvis studies dated 09/02/2007. TECHNIQUE: CT examination of the abdomen and pelvis following the administration of 100 mL of Omnipaque 350 intravenous contrast. Coronal and sagittal reformations were performed. Dose reduction techniques were achieved by using automated exposure control and/or adjustment of mA and/or kV according to patient size and/or use of iterative reconstruction technique. FINDINGS: ABDOMEN: Mild atelectatic and/or fibrotic changes in the visualized lower lung roberts. Mild pleural thickening in the lower lung roberts inferomedially. No evidence of pleural effusion. Views of the liver and spleen fail to demonstrate evidence of focal mass in either organ. Mild to moderate decreased attenuation of the liver compatible with fatty infiltration. Gallbladder and adrenal glands appear grossly unremarkable. Mild atrophy and fatty infiltration of the pancreas without focal mass or ductal dilatation. Moderate to large size hiatal hernia. Remainder of the stomach is grossly unremarkable. Bowel loops appear grossly unremarkable. Atherosclerotic calcifications within portions of the abdominal aorta. No evidence of aneurysm. No evidence of adenopathy in the retroperitoneum. No obvious renal mass or obstructive uropathy. Mild flattening and thinning of the renal cortex on the left laterally compatible with postoperative change when correlated with history. Mild perirenal fatty stranding at this level laterally suggesting a mild degree of fluid and/or fibrosis. Small fat-filled anterior abdominal wall hernia in the midline at the supraumbilical level. PELVIS: Small fat-filled umbilical hernia without bowel content. Bladder appears grossly unremarkable. Prostate gland is grossly within normal limits for size with a few small calcifications noted. Small bilateral hydroceles greater on the left. Perirectal fat planes are grossly intact. Bowel loops appear grossly unremarkable. Atherosclerotic calcifications within portions of the iliofemoral arteries. No evidence of aneurysm. No evidence of adenopathy. Patient is status post appendectomy. Mild degenerative changes in the visualized lower dorsal spine and lumbar spine. IMPRESSION: CT abdomen and CT pelvis studies demonstrate grossly unremarkable postoperative changes about the left kidney as described. Adjacent small amount of fluid and/or fibrosis. Moderate to large hiatal hernia. Mild to moderate fatty infiltration of the liver. Small umbilical hernia. Small anterior abdominal wall hernia in the midline at the supraumbilical level. Small bilateral hydroceles greater on the left. Final Dictated by: Low Nye MD Dictated DT/TM: 03/24/20 10:37 Signed (Electronic Signature): Low Nye MD 03/24/20 11:30 a Technologist: Oswaldo ABAD [facility] XR Chest 2 Viewson 1 XR Chest 2 Views EXAM: CHEST 2 VIEWS HISTORY: Malignant neoplasm of kidney TECHNIQUE: PA and lateral views chest. COMPARISON: None. FINDINGS: The lungs are mildly hyperexpanded. Tiny area of discoid atelectasis or scarring in the peripheral lingula noted. There is no focal lung consolidation, pleural effusion or pneumothorax. Pulmonary vasculature is within normal limits. The cardiomediastinal silhouette is normal. There is a moderate to large hiatal hernia measuring approximately 10 cm. IMPRESSION: 1. Tiny area of peripheral lingular atelectasis or scarring. Otherwise, well-expanded and clear lungs. 2. Normal heart size. 3. 10 cm hiatal hernia. Final Dictated by: MD Hodgson Wincha Dictated DT/TM: 03/24/20 9:54 Signed (Electronic Signature): MD Hodgson Wincha 03/24/20 9:56 am Technologist: Ashlee VINCENT [facility] Provider Orderson 03-05-2020 Provider Orders [id number] .00OTGTIFF [facility] Basic Metabolic Panelon 06- Anion gap [Moles/Vol] 13 mmol/L 9 - 17 mmol/L [place], [place] Bun/Cre Ratio 13 [place], [place] Calcium [Mass/Vol] 9.2 mg/dL 8.6 - 10. 4 mg/dL [place], [place] Chloride [Moles/Vol] 101 mmol/L 98 - 107 mmol/L [place] CO2 [Moles/Vol] 23 mmol/L 20 - 31 mmol/L [place] Creatinine [Mass/Vol] 0.83 mg/dL 0.7 - 1.2 mg/dL [place] GFR >60 >60 mL/min [place] GFR Non- >60 >60 mL/min [place] GFR/1.73 sq M predicted among non-blacks MDRD (S/P/Bld) [Vol rate/Area] [place], [place] Comment on above: Average GFR for 50-5 9 years old: 93 mL/min/1.73sq m Chronic Kidney Disease: <60 mL/min/1.73sq m Kidney failure: <15 mL/min/1.73sq m eGFR calculated using average adult body mass. Additional eGFR calculator available at: http://www.Al [employer]al/multiple_crcl_2012.htm GFR/1.73 sq M predicted among non-blacks MDRD (S/P/Bld) [Vol rate/Area] NOT REPORTED [place], [place] Glucose [Mass/Vol] 130 mg/dL High 70 - 99 mg/dL [place], [place] Interpretation and review of laboratory results Abnormal [place], [place] Potassium [Moles/Vol] 4.3 mmol/L 3.7 - 5.3 mmol/L [place] Sodium [Moles/Vol] 137 mmol/L 135 - 144 mmol/L [place] Urea nitrogen [Mass/Vol] 11 mg/dL 6 - 20 mg/dL [place] Basic Metabolic Profon 08-04 (cont.) Normal [facility] Comment on above: Result Comment: Aver age GFR for 50-59 years old: 93 mL/min/1.73sq m Chronic Kidney Disease: <60 mL/min/1.73sq m Kidney failure: <15 mL/min/1.73sq m eGFR calculated using average adult body mass. Additional eGFR calculator available at: http://www.[employer].Biodesix/multiple_crcl_2012.htm Performed By: #### C MICHAEL, BMP #### [facility] [address] [place] [address] Nursery Attendant: Adi Dave MD Anion gap [Moles/Vol] 13 mmol/L Normal 9-17 [facility] Comment on above: Performed By: #### C MICHAEL, BMP #### [facility] [address] [place] [address] Nursery Attendant: Adi Dave MD BUN/CRE Ratio 13 Normal 9-20 [facility] Comment on above: Performed By: #### C MICHAEL, BMP #### [facility] [address] [place] [address] Nursery Attendant: Adi Dave MD Calcium [Mass/Vol] 9.2 mg/dL Normal 8.6-10.4 [facility] Comment on above: Performed By: #### C MICHAEL, BMP #### [facility] [address] [place] [address] Nursery Attendant: Adi Dave MD Chloride [Moles/Vol] 101 mmol/L Normal 98-107 [facility] Comment on above: Performed By: #### C MICHAEL, BMP #### [facility] [address] [place] [address] Nursery Attendant: Adi Dave MD CO2 [Moles/Vol] 23 mmol/L Normal 20-31 [facility] Comment on above: Performed By: #### C MICHAEL, BMP #### [facility] [address] [place] [address] Nursery Attendant: Adi Dave MD Creatinine [Mass/Vol] 0.83 mg/dL Normal 0.70-1.20 [facility] Comment on above: Performed By: #### C MICHAEL, BMP #### [facility] [address] [place] [address] Nursery Attendant: Adi Dave MD GFR, Amer >60 Normal >60 [facility] Comment on above: Performed By: #### C BC, BMP #### [facility] [address] [place] [address] Nursery Attendant: Adi Dave MD GFR,non Amer >60 Normal >60 [facility] Comment on above: Performed By: #### C MICHAEL, BMP #### [facility] [address] [place] [address] Nursery Attendant: Adi Dave MD Glucose [Mass/Vol] 130 mg/dL High 70-99 [facility] Comment on above: Performed By: #### C MICHAEL, BMP #### [facility] [address] [place] [address] Nursery Attendant: Adi Dave MD Potassium [Moles/Vol] 4.3 mmol/L Normal 3.7-5.3 [facility] Comment on above: Performed By: #### C BC, BMP #### [facility] [address] [place] [address] Nursery Attendant: Adi Dave MD Sodium [Moles/Vol] 137 mmol/L Normal 135-144 [facility] Comment on above: Performed By: #### C BC, BMP #### [facility] [address] [place] [address] Nursery Attendant: Adi Dave MD Urea nitrogen [Mass/Vol] 11 mg/dL Normal 6-20 [facility] Comment on above: Performed By: #### C BC, BMP #### [facility] [address] [facility] [place] [address] Nursery Attendant: Adi Dave MD Staging: NOT REPORTED Normal [facility] Comment on above: Performed By: #### C BC, BMP #### [facility] [address] [facility] [place] [address] Nursery Attendant: Adi Dave MD CBCon 08-05-2019 Erythrocyte distribution width (RBC) [Ratio] 12.7 % Normal 11.8-14.4 [facility] Comment on above: Performed By: #### C MICHAEL, BMP #### [facility] [place] [address] Nursery Attendant: Adi Dave MD Hematocrit (Bld) [Volume fraction] 43.6 % Normal 40.7-50.3 [facility] Comment on above: Performed By: #### C MICHAEL, BMP #### [facility] [address] [place] [address]. [place] [address] Nursery Attendant: Adi Dave MD Hemoglobin (Bld) [Mass/Vol] 14.1 g/dL Normal 13.0-17.0 [facility] Comment on above: Performed By: #### C MICHAEL, BMP #### [facility] [address] [place] [address]. [place] [address] Nursery Attendant: Adi Dave MD MCH (RBC) [Entitic mass] 28.6 pg Normal 25.2-33.5 [facility] Comment on above: Performed By: #### C MICHAEL, BMP #### [facility] [place] [address] Nursery Attendant: Adi Dave MD MCHC (RBC) [Mass/Vol] 32.3 g/dL Normal 28.4-34.8 [facility] Comment on above: Performed By: #### C BC, BMP #### [facility] [address] [place] [address] Nursery Attendant: Adi Dave MD MCV (RBC) [Entitic vol] 88.4 fL Normal 82.6-102.9 [facility] Comment on above: Performed By: #### C BC, BMP #### [facility] [address] [place] [address] Nursery Attendant: Adi Dave MD NRBC Automated 0.0 per 100 WBC Normal 0.0 [facility] Comment on above: Performed By: #### C MICHAEL, BMP #### [facility] [place] [address] Nursery Attendant: Adi Dave MD Platelet mean volume (Bld) [Entitic vol] 10.1 fL Normal 8.1-13.5 [facility] Comment on above: Performed By: #### C MICHAEL, BMP #### [facility] [facility] [place] [address] Nursery Attendant: Adi Dave MD Platelets (Bld) [#/Vol] 128 10*3/uL Low 138-453 [facility] Comment on above: Performed By: #### C MICHAEL, BMP #### [facility] [place] [address] Nursery Attendant: Adi Dave MD RBC (Bld) [#/Vol] 4.93 10*6/uL Normal 4.21-5.77 [facility] Comment on above: Performed By: #### C MICHAEL, BMP #### [facility] [place] [address] Nursery Attendant: Adi Dave MD WBC (Bld) [#/Vol] 16.5 10*3/uL High 3.5-11.3 [facility] Comment on above: Performed By: #### C BC, ISABEL #### [facility] [address] [place] [address] Nursery Attendant: Adi Dave MD Erythrocyte distribution width (RBC) [Ratio] 12.7 % 11.8 - 14.4 % [place] Hematocrit (Bld) [Volume fraction] 43.6 % 40.7 - 50.3 % [place] Hemoglobin (Bld) [Mass/Vol] 14.1 g/dL 13 - 17 g/dL [place] Interpretation and review of laboratory results Abnormal [place] MCH (RBC) [Entitic mass] 28.6 pg 25.2 - 33.5 pg [place] MCHC (RBC) [Mass/Vol] 32.3 g/dL 28.4 - 34.8 g/dL [place] MCV (RBC) [Entitic vol] 88.4 fL 82.6 - 102.9 fL [place] Platelet mean volume (Bld) [Entitic vol] 10.1 fL 8.1 - 13.5 fL [place] Platelets (Bld) [#/Vol] 128 10*3/uL Low [place] RBC (Bld) [#/Vol] 4.93 10*6/uL 4.21 - 5.7 7 m/uL [place] WBC (Bld) [#/Vol] 16.5 10*3/uL [place] WBC (Bld) [#/Vol] 0.0 10*3/uL 0.0 per 10 0 WBC [place] Surgical Pathologyon 020 Surgical Pathology Report -- Diagnosis -- LEFT RENAL MASS, PARTIAL NEPHRECTOMY: CLEAR CELL RENAL CELL CARCINOMA, GRADE 2/4, 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 Claudia Ball Electronically Signed Out david08/05/2019 Clinical Information Pre-op Diagnosis: LEFT RENAL MASS Operative Findings: LEFT KIDNEY CANCER Operation Performed: LEFT NEPHRECTOMY PARTIAL ROBOTIC XI WITH INTRA-OP LAP U/S WITH FORTEC Source of Specimen 1: LEFT KIDNEY CANCER Gross Description NIKITA GASTELUM, LEFT KIDNEY CANCER 5.2 x 3.5 x 2.5 cm portion of kidney. The parenchymal margin is unremarkable and inked black. The capsule is distorted but is intact. Sectioning reveals a 2.2 x 2.2 x 1.5 cm solid hemorrhagic yellow mass that distorts but does not involve the renal capsule and is 0.2 cm from the parenchymal margin. The uninvolved kidney is akins with no other lesion. Cassette summary: A-C lesion, D uninvolved kidney. tm Microscopic Description PROCEDURE: Partial nephrectomy SPECIMEN LATERALITY: Left TUMOR SIZE (LARGEST IF MULTIPLE): 2.2 cm FOCALITY: Unifocal (partial nephrectomy only) HISTOLOGIC TYPE: Clear cell renal cell carcinoma SARCOMATOID FEATURES: Negative for sarcomatoid features RHABDOID FEATURES: Negative for rhabdoid features HISTOLOGIC GRADE (WHO / ISUP): Grade 2/4 TUMOR NECROSIS: Negative for necrosis skin. TUMOR EXTENSION: Tumor limited to kidney MARGINS: Renal capsular and parenchymal margins negative. REGIONAL LYMPH NODES NUMBER EXAMINED: Not submitted NUMBER OF LYMPH NODES POSITIVE: N/A A PATHOLOGIC STAGE CLASSIFICATION: pT1a pNX PATHOLOGIC FINDINGS IN NON-NEOPLASTIC KIDNEY: Essentially normal CAP Kidney 4020 in conjunction with AJCC 8 ed. SURGICAL PATHOLOGY CONSULTATION Patient Name: NIKITA GASTELUM [facility] Rec: [id number] Path Number: [id number] [facility] [employer] [facility] ANATOMIC PATHOLOGY [address] [place] [id number] [place], [place] Basic Metabolic Panelon 06- Anion gap [Moles/Vol] 14 mmol/L 9 - 17 mmol/L [place] Bun/Cre Ratio 15 [place], [place] Calcium [Mass/Vol] 8.9 mg/dL 8.6 - 10. 4 mg/dL [place] Chloride [Moles/Vol] 99 mmol/L 98 - 107 mmol/L [place] CO2 [Moles/Vol] 25 mmol/L 20 - 31 mmol/L [place] Creatinine [Mass/Vol] 0.86 mg/dL 0.7 - 1.2 mg/dL [place] GFR >60 >60 mL/min [place] GFR Non- >60 >60 mL/min [place] GFR/1.73 sq M predicted among non-blacks MDRD (S/P/Bld) [Vol rate/Area] NOT REPORTED [place] GFR/1.73 sq M predicted among non-blacks MDRD (S/P/Bld) [Vol rate/Area] [place] Comment on above: Average GFR for 50-5 9 years old: 93 mL/min/1.73sq m Chronic Kidney Disease: <60 mL/min/1.73sq m Kidney failure: <15 mL/min/1.73sq m eGFR calculated using average adult body mass. Additional eGFR calculator available at: http://www.[employer]/multiple_crcl_2011.htm Glucose [Mass/Vol] 154 mg/dL High 70 - 99 mg/dL [place] Interpretation and review of laboratory results Abnormal [place] Potassium [Moles/Vol] 3.9 mmol/L 3.7 - 5.3 mmol/L [place] Sodium [Moles/Vol] 138 mmol/L 135 - 144 mmol/L [place] Urea nitrogen [Mass/Vol] 13 mg/dL 6 - 20 mg/dL [place] Basic Metabolic Profon 08-03 (cont.) Normal [facility] Comment on above: Result Comment: Aver age GFR for 50-59 years old: 93 mL/min/1.73sq m Chronic Kidney Disease: <60 mL/min/1.73sq m Kidney failure: <15 mL/min/1.73sq m eGFR calculated using average adult body mass. Additional eGFR calculator available at: http://www.[employer]/multiple_crcl_2012.htm Performed By: #### C BC, BMP #### [facility] [address] [place] [address] Nursery Attendant: Adi Dave MD Anion gap [Moles/Vol] 14 mmol/L Normal 9-17 [facility] Comment on above: Performed By: #### C BC, BMP #### [facility] [address] [place] [address] Nursery Attendant: Adi Dave MD BUN/CRE Ratio 15 Normal 9-20 [facility] Comment on above: Performed By: #### C BC, BMP #### [facility] [address] [place] [address] Nursery Attendant: Adi Dave MD Calcium [Mass/Vol] 8.9 mg/dL Normal 8.6-10.4 [facility] Comment on above: Performed By: #### C BC, BMP #### [facility] [address] [place] [address] Nursery Attendant: Adi Dave MD Chloride [Moles/Vol] 99 mmol/L Normal 98-107 [facility] Comment on above: Performed By: #### C BC, BMP #### [facility] [address] [place] [address] Nursery Attendant: Adi Dave MD CO2 [Moles/Vol] 25 mmol/L Normal 20-31 [facility] Comment on above: Performed By: #### C BC, BMP #### [facility] [address] [place] [address] Nursery Attendant: Adi Dave MD Creatinine [Mass/Vol] 0.86 mg/dL Normal 0.70-1.20 [facility] Comment on above: Performed By: #### C BC, BMP #### [facility] [address] [place] [address] Nursery Attendant: Adi Dave MD GFR, Amer >60 Normal >60 [facility] Comment on above: Performed By: #### C BC, BMP #### [facility] [address] [place] [address] Nursery Attendant: Adi Dave MD GFR,non Amer >60 Normal >60 [facility] Comment on above: Performed By: #### C BC, BMP #### [facility] [address] [place] [address] Nursery Attendant: Adi Dave MD Glucose [Mass/Vol] 154 mg/dL High 70-99 [facility] Comment on above: Performed By: #### C BC, BMP #### [facility] [address] [place] [address] Nursery Attendant: Adi Dave MD Potassium [Moles/Vol] 3.9 mmol/L Normal 3.7-5.3 [facility] Comment on above: Performed By: #### C BC, BMP #### [facility] [address] [place] [address] Nursery Attendant: dAi Dave MD Sodium [Moles/Vol] 138 mmol/L Normal 135-144 [facility] Comment on above: Performed By: #### C BC, BMP #### [facility] [address] [place] [address] Nursery Attendant: Adi Dave MD Urea nitrogen [Mass/Vol] 13 mg/dL Normal 6-20 [facility] Comment on above: Performed By: #### C BC, BMP #### [facility] [address] [place] [address] Nursery Attendant: Adi Dave MD Staging: NOT REPORTED Normal [facility] Comment on above: Performed By: #### C BC, BMP #### [facility] [address] [facility] [place] [address] Nursery Attendant: Adi Dave MD CBCon 08-04-2019 Erythrocyte distribution width (RBC) [Ratio] 12.8 % Normal 11.8-14.4 [facility] Comment on above: Performed By: #### C BC, BMP #### [facility] [address] [facility] [place] [address] Nursery Attendant: Adi Dave MD Hematocrit (Bld) [Volume fraction] 43.7 % Normal 40.7-50.3 [facility] Comment on above: Performed By: #### C BC, BMP #### [facility] [place] [address] Nursery Attendant: Adi Dave MD Hemoglobin (Bld) [Mass/Vol] 14.7 g/dL Normal 13.0-17.0 [facility] Comment on above: Performed By: #### C BC, BMP #### [facility] [place] [address] Nursery Attendant: Adi Dave MD MCH (RBC) [Entitic mass] 28.7 pg Normal 25.2-33.5 [facility] Comment on above: Performed By: #### C BC, BMP #### [facility] [address] [facility] [place] [address] Nursery Attendant: Adi Dave MD MCHC (RBC) [Mass/Vol] 33.6 g/dL Normal 28.4-34.8 [facility] Comment on above: Performed By: #### C BC, BMP #### [facility] [address] [facility] [place] [address] Nursery Attendant: Adi Dave MD MCV (RBC) [Entitic vol] 85.4 fL Normal 82.6-102.9 [facility] Comment on above: Performed By: #### C MICHAEL, BMP #### [facility] [address] [facility] [place] [address] Nursery Attendant: Adi Dave MD NRBC Automated 0.0 per 100 WBC Normal 0.0 [facility] Comment on above: Performed By: #### C MICHAEL, BMP #### [facility] [address] [place] [address] Nursery Attendant: Adi Dave MD Platelet mean volume (Bld) [Entitic vol] 9.2 fL Normal 8.1-13.5 [facility] Comment on above: Performed By: #### C MICHAEL, BMP #### [facility] [address] [place] [address]. [place] [address] Nursery Attendant: Adi Dave MD Platelets (Bld) [#/Vol] 221 10*3/uL Normal 138-453 [facility] Comment on above: Performed By: #### C MICHAEL, BMP #### [facility] [place] [address] Nursery Attendant: Adi Dave MD RBC (Bld) [#/Vol] 5.12 10*6/uL Normal 4.21-5.77 [facility] Comment on above: Performed By: #### C MICHAEL, BMP #### [facility] [facility] [place] [address] Nursery Attendant: Adi Dave MD WBC (Bld) [#/Vol] 13.6 10*3/uL High 3.5-11.3 [facility] Comment on above: Performed By: #### C MICHAEL, BMP #### [facility] [place] [address] Nursery Attendant: Adi Dave MD Erythrocyte distribution width (RBC) [Ratio] 12.8 % 11.8 - 14.4 % [place] Hematocrit (Bld) [Volume fraction] 43.7 % 40.7 - 50.3 % [place] Hemoglobin (Bld) [Mass/Vol] 14.7 g/dL 13 - 17 g/dL [place] Interpretation and review of laboratory results Abnormal [place] MCH (RBC) [Entitic mass] 28.7 pg 25.2 - 33.5 pg [place] MCHC (RBC) [Mass/Vol] 33.6 g/dL 28.4 - 34.8 g/dL [place] MCV (RBC) [Entitic vol] 85.4 fL 82.6 - 102.9 fL [place], [place] Platelet mean volume (Bld) [Entitic vol] 9.2 fL 8.1 - 13.5 fL [place] Platelets (Bld) [#/Vol] 221 10*3/uL [place] RBC (Bld) [#/Vol] 5.12 10*6/uL 4.21 - 5.7 7 m/uL [place] WBC (Bld) [#/Vol] 0.0 10*3/uL 0.0 per 10 0 WBC [place] WBC (Bld) [#/Vol] 13.6 10*3/uL [place] Surgical Pathologyon 020 Surgical Pathology (NOTE) -- Diagnosis -- LEFT RENAL MASS, PARTIAL NEPHRECTOMY: CLEAR CELL RENAL CELL CARCINOMA, GRADE 2/4, 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 Claudia Ball Electronically Signed Out ajb/08/05/2019 Clinical Information Pre-op Diagnosis: LEFT RENAL MASS Operative Findings: LEFT KIDNEY CANCER Operation Performed: LEFT NEPHRECTOMY PARTIAL ROBOTIC XI WITH INTRA-OP LAP U/S WITH FORT Source of Specimen 1: LEFT KIDNEY CANCER Gross Description NIKITA BEAUCHAMPLIN, LEFT KIDNEY CANCER 5.2 x 3.5 x 2.5 cm portion of kidney. The parenchymal margin is unremarkable and inked black. The capsule is distorted but is intact. Sectioning reveals a 2.2 x 2.2 x 1.5 cm solid hemorrhagic yellow mass that distorts but does not involve the renal capsule and is 0.2 cm from the parenchymal margin. The uninvolved kidney is akins with no other lesion. Cassette summary: A-C lesion, D uninvolved kidney. tm Microscopic Description PROCEDURE: Partial nephrectomy SPECIMEN LATERALITY: Left TUMOR SIZE (LARGEST IF MULTIPLE): 2.2 cm FOCALITY: Unifocal (partial nephrectomy only) HISTOLOGIC TYPE: Clear cell renal cell carcinoma SARCOMATOID FEATURES: Negative for sarcomatoid features RHABDOID FEATURES: Negative for rhabdoid features HISTOLOGIC GRADE (WHO / ISUP): Grade 2/4 TUMOR NECROSIS: Negative for necrosis skin. TUMOR EXTENSION: Tumor limited to kidney MARGINS: Renal capsular and parenchymal margins negative. REGIONAL LYMPH NODES NUMBER EXAMINED: Not submitted NUMBER OF LYMPH NODES POSITIVE: N/A A PATHOLOGIC STAGE CLASSIFICATION: pT1a pNX PATHOLOGIC FINDINGS IN NON-NEOPLASTIC KIDNEY: Essentially normal CAP Kidney 4020 in conjunction with AJCC 8 ed. SURGICAL PATHOLOGY CONSULTATION Patient Name: NIKITA GASTELUM [facility] Rec: [id number] Path Number: [id number] [facility] ANATOMIC PATHOLOGY [address] [place] [address]. [place], [place] [address] Normal [facility] Comment on above: Performed By: #### C DP, NATALY GARCÍA #### [facility] [address] [place], [place] [id number] Nursery Attendant: Adi Dave MD COVID-19on 08-02-2019 SARS-CoV-2 [place] SARS-CoV-2, PCR Not Detected Not Detected [place] Comment on above: (NOTE) The [employer] RealTime SARS-CoV-2 assay is a real-time (rt) reverse transcriptase (RT) polymerase chain reaction (PCR) test intended for the [employer] system. The SARS-CoV-2 primer and probe sets are designed to detect RNA from SARS-CoV-2 in nasopharyngeal (PROPERTY CLAIMS ADJUSTER) and oropharyngeal (OP) swabs from patients with signs and symptoms of infection who are suspected of COVID-19. Results are for the identification of SARS-CoV-2 RNA. The SARS-CoV-2 RNA is generally detectable in a nasopharyngeal and oropharyngeal swabs during the acute phase of infection. The [employer] RealTime SARS-CoV-2 assay is intended for use by qualified and trained clinical laboratory personnel specifically instructed and trained in the techniques of real-time PCR and in vitro diagnostic procedures. The [employer] RealTime SARS-CoV-2 assay is only for use under the Food and Drug Administration Emergency Use Authorization. Testing is limited to laboratories certified under the Clinical Laboratory Improvement Amendments of 1988 (CLIA), 42 U.S.C. 263a, to perform high complexity tests. Not Detected: Not detected does not preclude SARS-CoV-2 infection and should not be used as the sole basis for patient management decisions. Not detected results must be combined with clinical observations, patient history, and epidemiological information. The above 1 analytes were performed by [address] [address] SARS-CoV-2, [place], [place] Source .NASOPHARYNGEAL SWAB [place] [id number] 08-02-2019 SARS-CoV-2 Not Detected Normal Not Detected [facility] Comment on above: Result Comment: (NOT E) The [employer] RealTime SARS-CoV-2 assay is a real-time (rt) reverse transcriptase (RT) polymerase chain reaction (PCR) test intended for the [employer] system. The SARS-CoV-2 primer and probe sets are designed to detect RNA from SARS-CoV-2 in nasopharyngeal (PROPERTY CLAIMS ADJUSTER) and oropharyngeal (OP) swabs from patients with signs and symptoms of infection who are suspected of COVID-19. Results are for the identification of SARS-CoV-2 RNA. The SARS-CoV-2 RNA is generally detectable in a nasopharyngeal and oropharyngeal swabs during the acute phase of infection. The [employer] RealTime SARS-CoV-2 assay is intended for use by qualified and trained clinical laboratory personnel specifically instructed and trained in the techniques of real-time PCR and in vitro diagnostic procedures. The [employer] RealTime SARS-CoV-2 assay is only for use under the Food and Drug Administration Emergency Use Authorization. Testing is limited to laboratories certified under the Clinical Laboratory Improvement Amendments of 1988 (CLIA), 42 U.S.C. 263a, to perform high complexity tests. Not Detected: Not detected does not preclude SARS-CoV-2 infection and should not be used as the sole basis for patient management decisions. Not detected results must be combined with clinical observations, patient history, and epidemiological information. The above 1 analytes were performed by [address] [address] Performed By: #### C OVID #### [employer] [address] [address] Nursery Attendant: Hasmukh Guzmán MD [facility] [address] [place] [address] Nursery Attendant: Giovany Kaiser MD [id number] 08-01-2019 SARS-CoV-2,Rapid Normal [facility] Comment on above: Performed By: #### C OVID #### [employer] [address] [place] [address] Nursery Attendant: Hasmukh Guzmán MD [facility] [address] [place] [address] Nursery Attendant: Giovany Kaiser MD SARS-CoV-2 [facility] Comment on above: Performed By: #### C OVID #### [employer] [address] [place] [address] Nursery Attendant: Hasmukh Guzmán MD [facility] [address] [place] [address] Nursery Attendant: Giovany Kaiser MD [id number] 07-31-2019 SARS-CoV-2 Source .NASOPHARYNGEAL SWAB [facility] Comment on above: Performed By: #### C OVID #### [employer] [address] [address] Nursery Attendant: Hasmukh Guzmán MD [facility] [address] [place] [address] Nursery Attendant: Giovany Kaiser MD Cult,Urineon 07-16-2019 Cult,Urine Specimen Description .CLEAN CATCH URINE Special Requests NOT REPORTED Culture NO GROWTH Report Status FINAL 07/16/2019 Normal [facility] Comment on above: Performed By: #### U RC #### [facility] [address] [place] [address] Nursery Attendant: Adi Dave MD [facility] [address] [place], [place] [id number] Nursery Attendant: Hasmukh Guzmán MD Culture, Urineon 07-16-2019 Culture NO GROWTH [place] Special Requests NOT REPORTED [place] Specimen Description .CLEAN CATCH URINE [place] BUN & Creatinineon 0 Creatinine [Mass/Vol] 0.84 mg/dL 0.7 - 1.2 mg/dL [place] GFR >60 >60 mL/min [place] GFR Non- >60 >60 mL/min [place] GFR/1.73 sq M predicted among non-blacks MDRD (S/P/Bld) [Vol rate/Area] NOT REPORTED [place] GFR/1.73 sq M predicted among non-blacks MDRD (S/P/Bld) [Vol rate/Area] [place] Comment on above: Average GFR for 50-5 9 years old: 93 mL/min/1.73sq m Chronic Kidney Disease: <60 mL/min/1.73sq m Kidney failure: <15 mL/min/1.73sq m eGFR calculated using average adult body mass. Additional eGFR calculator available at: http://www.[employer]/multiple_crcl_2012.htm Urea nitrogen [Mass/Vol] 14 mg/dL 6 - 20 mg/dL [place] BUN + Creatinineon 0 (cont.) Normal [facility] Comment on above: Result Comment: Aver age GFR for 50-59 years old: 93 mL/min/1.73sq m Chronic Kidney Disease: <60 mL/min/1.73sq m Kidney failure: <15 mL/min/1.73sq m eGFR calculated using average adult body mass. Additional eGFR calculator available at: http://www.[employer]/multiple_crcl_2012.htm Performed By: #### C DP, BUNCRT, LYTE #### [facility] [address] [place] [address] Nursery Attendant: Adi Dave MD Creatinine [Mass/Vol] 0.84 mg/dL Normal 0.70-1.20 [facility] Comment on above: Performed By: #### C DP, BUNCRT, LYTE #### [facility] [address] [place] [address] Nursery Attendant: Adi Dave MD GFR, Amer >60 Normal >60 [facility] Comment on above: Performed By: #### C DP, BUNCRT, LYTE #### [facility] [address] [place] [address] Nursery Attendant: Adi Dave MD GFR,non Amer >60 Normal >60 [facility] Comment on above: Performed By: #### C DP, BUNCRT, LYTE #### [facility] [address] [place] [address] Nursery Attendant: Adi Dave MD Urea nitrogen [Mass/Vol] 14 mg/dL Normal 6-20 [facility] Comment on above: Performed By: #### C DP, BUNCRT, LYTE #### [facility] [address] [place] [address] Nursery Attendant: Adi Dave MD Staging: NOT REPORTED Normal [facility] Comment on above: Performed By: #### C DP, BUNCRT, LYTE #### [facility] [address] [place] [address] Nursery Attendant: Adi Dave MD CBC Auto Differentialon 06-0 Basophils (Bld) [#/Vol] 10*3/uL [place] Basophils/100 WBC (Bld) 0 % 0 - 2 % [place] Differential Type NOT REPORTED [place] Eosinophils (Bld) [#/Vol] 10*3/uL [place] Eosinophils/100 WBC (Bld) 0 % Low 1 - 4 % [place] Erythrocyte distribution width (RBC) [Ratio] 13.0 % 11.8 - 14.4 % [place] Hematocrit (Bld) [Volume fraction] 44.1 % 40.7 - 50.3 % [place] Hemoglobin (Bld) [Mass/Vol] 14.7 g/dL 13 - 17 g/dL [place] Immature granulocytes (Bld) [#/Vol] 1 % High 0 [place] Immature granulocytes (Bld) [#/Vol] 0.06 10*3/uL [place] Interpretation and review of laboratory results Abnormal [place] Lymphocytes (Bld) [#/Vol] 1.11 10*3/uL [place] Lymphocytes/100 WBC (Bld) 9 % Low 24 - 43 % [place] MCH (RBC) [Entitic mass] 28.6 pg 25.2 - 33.5 pg [place] MCHC (RBC) [Mass/Vol] 33.3 g/dL 28.4 - 34.8 g/dL [place] MCV (RBC) [Entitic vol] 85.8 fL 82.6 - 102.9 fL [place] Monocytes (Bld) [#/Vol] 0.58 10*3/uL [place] Monocytes/100 WBC (Bld) 5 % 3 - 12 % [place] Platelet mean volume (Bld) [Entitic vol] 9.1 fL 8.1 - 13.5 fL [place] Platelets (Bld) [#/Vol] NOT REPORTED [place] Platelets (Bld) [#/Vol] 254 10*3/uL [place] RBC (Bld) [#/Vol] 5.14 10*6/uL 4.21 - 5.7 7 m/uL [place] RBC morphology finding Nom (Bld) NOT REPORTED [place] Segmented neutrophils/100 WBC (Bld) 85 % High 36 - 65 % [place] Segs Absolute 10.84 [place] WBC (Bld) [#/Vol] 0.0 10*3/uL 0.0 per 10 0 WBC [place] WBC (Bld) [#/Vol] 12.6 10*3/uL [place] WBC Morphology NOT REPORTED [place] CBC with Diffon 07-15-2019 Abs. Basophil <0.03 Normal 0.00-0.20 [facility] Comment on above: Performed By: #### C DP, BUNCRT, LYTE #### [facility] [address] [place] [address] Nursery Attendant: Adi Dave MD Abs.Imm.Granulocyte 0.06 k/uL Normal 0.00-0.30 [facility] Comment on above: Performed By: #### C DP, BUNCRT, LYTE #### [facility] [address] [place] [address] Nursery Attendant: Adi Dave MD Abs.Neutrophil (Seg) 10.84 k/uL High 1.50-8.10 [facility] Comment on above: Performed By: #### C DP, BUNCRT, LYTE #### [facility] [place] [address] Nursery Attendant: Adi Dave MD Basophils/100 WBC (Bld) 0 % Normal 0-2 [facility] Comment on above: Performed By: #### C DP, BUNCRT, LYTE #### [facility] [address] [place] [address] Nursery Attendant: Adi Dave MD Eosinophils (Bld) [#/Vol] 10*3/uL Normal 0.00-0.44 [facility] Comment on above: Performed By: #### C DP BUNCRT, LYTE #### [facility] [address] [facility] [place] [address] Nursery Attendant: Adi Dave MD Eosinophils/100 WBC (Bld) 0 % Low 1-4 [facility] Comment on above: Performed By: #### C DP BUNCRT, LYTE #### [facility] [address] [place] [address] Nursery Attendant: Adi Dave MD Erythrocyte distribution width (RBC) [Ratio] 13.0 % Normal 11.8-14.4 [facility] Comment on above: Performed By: #### C DP BUNCRT, LYTE #### [facility] [address] [place] [address] Nursery Attendant: Adi Dave MD Hematocrit (Bld) [Volume fraction] 44.1 % Normal 40.7-50.3 [facility] Comment on above: Performed By: #### C DP BUNCRT, LYTE #### [facility] [address] [place] [address] Nursery Attendant: Adi Dave MD Hemoglobin (Bld) [Mass/Vol] 14.7 g/dL Normal 13.0-17.0 [facility] Comment on above: Performed By: #### C DP BUNCRT, LYTE #### [facility] [address] [place] [address] Nursery Attendant: Adi Dave MD Immature granulocytes (Bld) [#/Vol] 1 % High 0 [facility] Comment on above: Performed By: #### C DP BUNCRT, LYTE #### [facility] [address] [place] [address] Nursery Attendant: Adi Dave MD Lymphocytes (Bld) [#/Vol] 1.11 10*3/uL Normal 1.10-3.70 [facility] Comment on above: Performed By: #### C DP, BUNCRT, LYTE #### [facility] [place] [address] Nursery Attendant: Adi Dave MD Lymphocytes/100 WBC (Bld) 9 % Low 24-43 [facility] Comment on above: Performed By: #### C DP, BUNCRT, LYTE #### [facility] [address] [place] [address]. [place] [address] Nursery Attendant: Adi Dave MD MCH (RBC) [Entitic mass] 28.6 pg Normal 25.2-33.5 [facility] Comment on above: Performed By: #### C DP, BUNCRT, LYTE #### [facility] [address] [place] [address]. [place] [address] Nursery Attendant: Adi Dave MD MCHC (RBC) [Mass/Vol] 33.3 g/dL Normal 28.4-34.8 [facility] Comment on above: Performed By: #### C DP, BUNCRT, LYTE #### [facility] [address] [place] [address]. [place] [address] Nursery Attendant: Adi Dave MD MCV (RBC) [Entitic vol] 85.8 fL Normal 82.6-102.9 [facility] Comment on above: Performed By: #### C DP, BUNCRT, LYTE #### [facility] [place] [address] Nursery Attendant: Adi Dave MD Monocytes (Bld) [#/Vol] 0.58 10*3/uL Normal 0.10-1.20 [facility] Comment on above: Performed By: #### C DP, BUNCRT, LYTE #### [facility] [address] [place] [address] Nursery Attendant: Adi Dave MD Monocytes/100 WBC (Bld) 5 % Normal 3-12 [facility] Comment on above: Performed By: #### C DP, BUNCRT, LYTE #### [facility] [address] [facility] [place] [address] Nursery Attendant: Adi Dave MD Neutrophil (Seg) 85 % High 36-65 [facility] Comment on above: Performed By: #### C DP, BUNCRT, LYTE #### [facility] [address] [place] [address]. [place] [address] Nursery Attendant: Adi Dave MD NRBC Automated 0.0 per 100 WBC Normal 0.0 [facility] Comment on above: Performed By: #### C DP, BUNCRT, LYTE #### [facility] [address] [place] [address]. [place] [address] Nursery Attendant: Adi Dave MD Platelet mean volume (Bld) [Entitic vol] 9.1 fL Normal 8.1-13.5 [facility] Comment on above: Performed By: #### C DP, BUNCRT, LYTE #### [facility] [place] [address] Nursery Attendant: Adi Dave MD Platelets (Bld) [#/Vol] 254 10*3/uL Normal 138-453 [facility] Comment on above: Performed By: #### C DP, BUNCRT, LYTE #### [facility] [place] [address] Nursery Attendant: Adi Dave MD RBC (Bld) [#/Vol] 5.14 10*6/uL Normal 4.21-5.77 [facility] Comment on above: Performed By: #### C DP, BUNCRT, LYTE #### [facility] [address] [place] [address] Nursery Attendant: Adi Dave MD WBC (Bld) [#/Vol] 12.6 10*3/uL High 3.5-11.3 [facility] Comment on above: Performed By: #### C DP, BUNCRT, LYTE #### [facility] [address] [place] [address]. [place] [address] Nursery Attendant: Adi Dave MD Auto Diff Performed NOT REPORTED Normal [facility] Comment on above: Performed By: #### C DP, BUNCRT, LYTE #### [facility] [address] [place], [place] [address]ia [facility] [place] [address] Nursery Attendant: Adi Dave MD Platelets (Bld) [#/Vol] NOT REPORTED Normal [facility] Comment on above: Performed By: #### C DP, BUNCRT, LYTE #### [facility] [address] [place] [address]. [place] [address] Nursery Attendant: Adi Dave MD RBC morphology finding Nom (Bld) NOT REPORTED Normal [facility] Comment on above: Performed By: #### C DP, BUNCRT, LYTE #### [facility] [address] [place], [place] [address]ia [facility] [place] [address] Nursery Attendant: Adi Dave MD WBC Morphology NOT REPORTED Normal [facility] Comment on above: Performed By: #### C DP, BUNCRT, LYTE #### [facility] [address] [place], [place] [address] [place] [address] Nursery Attendant: Adi Dave MD Electrolyte Panelon 07-15-19 20 Anion gap [Moles/Vol] 15 mmol/L 9 - 17 mmol/L [facility] Chloride [Moles/Vol] 101 mmol/L 98 - 107 mmol/L [facility] CO2 [Moles/Vol] 22 mmol/L 20 - 31 mmol/L [facility] Potassium [Moles/Vol] 4.1 mmol/L 3.7 - 5.3 mmol/L [facility] Sodium [Moles/Vol] 138 mmol/L 135 - 144 mmol/L [facility], [place] Electrolyteson 07-15-2019 Anion gap [Moles/Vol] 15 mmol/L Normal 9-17 [facility] Comment on above: Performed By: #### C DP BUNCRT, LYTE #### [facility] [address] [facility] [place] [address] Nursery Attendant: Adi Dave MD Chloride [Moles/Vol] 101 mmol/L Normal 98-107 [facility] Comment on above: Performed By: #### C ASIA BUNCRT, LYTE #### [facility] [address] [facility] [place] [address] Nursery Attendant: Adi Dave MD CO2 [Moles/Vol] 22 mmol/L Normal 20-31 [facility] Comment on above: Performed By: #### C ASIA BUNCRT, LYTE #### [facility] [address] [facility] [place] [address] Nursery Attendant: Adi Dave MD Potassium [Moles/Vol] 4.1 mmol/L Normal 3.7-5.3 [facility] Comment on above: Performed By: #### C DP BUNCRT, LYTE #### [facility] [address] [facility] [place] [address] Nursery Attendant: Adi Dave MD Sodium [Moles/Vol] 138 mmol/L Normal 135-144 [facility] Comment on above: Performed By: #### C DP, BUNCRT, LYTE #### [facility] [address] [place], [place] [id number] Nursery Attendant: Adi Dave MD TYPE AND SCREENon 07-15-2019 ABO/Rh Negative [facility] [place] Arm Band Number [id number] [facility] Expiration Date 08/07/2019,2359 [facility] [place] Type + Screenon 07-15-2019 Type + Screen Sample Expiration 08/07/2019,2359 Arm Band Number [id number] ABO/Rh(D) B NEGATIVE Antibody Screen NEGATIVE Normal [facility] Comment on above: Performed By: #### T YS #### [facility] [address] [place] [address] [id number] Nursery Attendant: Adi Dave MD Urinalysison 07-15-2019 Bilirubin Urine Negative NE[facility]IVE [facility] [place] Color, UA YELLOW YELLOW [facility] Glucose, Ur Negative NEGATIVE [facility] [place] Ketones Ql (U) Negative NEGATIVE [facility] [place] Leukocyte esterase Test strip Ql (U) Negative NEGATIVE [facility] [place] Nitrite, Urine Negative NEGATIVE [facility] pH, UA 5.5 [facility] [place] Protein (U) [Mass/Vol] Negative NEGATIVE [facility] Specific [place], UA 1.025 [facility] Turbidity UA CLEAR CLEAR [facility] [place] Urinalysis Comments Microscopic exam not performed based on chemical results unless requested in original order. [facility] Urine Hgb Negative NEGATIVE [facility] Urobilinogen, Urine Normal Normal [facility] Urinalysis, Routineon 2019 Acetoacetic Acid,Ur Negative Normal NEG [facility] Comment on above: Performed By: #### U A #### [facility] [address] [place] [address], [place] [address] Nursery Attendant: Adi Dave MD Bilirubin, SemiQt,Ur Negative Normal NEG [facility] Comment on above: Performed By: #### U A #### [facility] [address] [place] [address]. [place] [address] Nursery Attendant: Adi Dave MD Color (U) YELLOW Normal YEL [facility] Comment on above: Performed By: #### U A #### [facility] [address] [place] [address]. [place] [address] Nursery Attendant: Adi Dave MD Comment Microscopic exam not performed based on chemical results unless requested in Normal [facility] Comment on above: Result Comment: orig inal order. Performed By: #### U A #### [facility] [address] [place] [address] Nursery Attendant: Adi Dave MD Glucose Ql (U) Negative Normal NEG [facility] Comment on above: Performed By: #### U A #### [facility] [address] [place] [address]. [place] [address] Nursery Attendant: Adi Dave MD Hemoglobin, Ur Negative Normal NEG [facility] Comment on above: Performed By: #### U A #### [facility] [address] [place] [address]. [place] [address] Nursery Attendant: Adi Dave MD Leukocyte esterase Test strip Ql (U) Negative Normal NEG [facility] Comment on above: Performed By: #### U A #### [facility] [address] [place] [address]. [place] [address] Nursery Attendant: Adi Dave MD Nitrite,Ur Negative Normal NEG [facility] Comment on above: Performed By: #### U A #### [facility] [address] [place] [address] Nursery Attendant: Adi Dave MD pH (U) 5.5 [pH] Normal 5.0-8.0 [facility] Comment on above: Performed By: #### U A #### [facility] [address] [place] [address] Nursery Attendant: Adi Dave MD Protein Ql (U) Negative Normal NEG [facility] Comment on above: Performed By: #### U A #### [facility] [address] [place] [address] Nursery Attendant: Adi Dave MD Specific gravity (U) [Rel density] 1.025 Normal 1.005-1.030 [facility] Comment on above: Performed By: #### U A #### [facility] [address] [facility] [place] [address] Nursery Attendant: Adi Dave MD Turbidity CLEAR Normal CLEAR [facility] Comment on above: Performed By: #### U A #### [facility] [address] [facility] [place] [address] Nursery Attendant: Adi Dave MD Urobilinogen,Ur Normal Normal NORM [facility] Comment on above: Performed By: #### U A #### [facility] [facility] [place] [address] Nursery Attendant: Adi Dave MD Vital Signs Date Time Vital Sign Value Performing Clinician Facility 03-22-2023 10:38-0500 Body mass index (BMI) [Ratio] 31.36 kg/m2 Jany Medeiros [employer] Work Phone: [facility] 03-22-2023 10:38-0500 Body weight 103.42 kg Jany Medeiros [employer] Work Phone: [facility] 03-22-2023 10:38-0500 Diastolic blood pressure 82 mm[Hg] Jany Medeiros [employer] Work Phone: [facility] 03-22-2023 10:38-0500 Heart rate 65 /min Jany Medeiros [employer] Work Phone: [facility] 03-22-2023 10:38-0500 SaO2% (BldA) [Mass fraction] 95 % Jany Medeiros [employer] Work Phone: [facility] 03-22-2023 10:38-0500 Systolic blood pressure 128 mm[Hg] Jany Medeiros [employer] Work Phone: [facility] 01-28-2021 13:15-0500 Body height 180.34 cm Lacey Luciano Other [facility] Other 01-28-2021 13:15-0500 Body mass index (BMI) [Ratio] 30.68 kg/m2 Lacey Hopemond Other [facility] Other 01-28-2021 13:15-0500 Body temperature 97.6 [degF] Lacey Hopemond Other [facility] Other 01-28-2021 13:15-0500 Body weight 99.79 kg Lacey Luciano Other [facility] Other 01-28-2021 13:15-0500 Respiratory rate 18 /min Lacey Hopemond Other [facility] Other 01-28-2021 13:15-0500 SaO2% (BldA) [Mass fraction] 97 % Lacey Luciano Other [facility] Other 08-05-2019 11:59-0400 Body Temperature 98.6 [degF] [place] 08-05-2019 11:59-0400 BP Diastolic 79 mm[Hg] [facility] [place] 08-05-2019 11:59-0400 BP Systolic 134 mm[Hg] [facility] [place] 08-05-2019 11:59-0400 Pulse (Heart Rate) 66 /min [facility] 08-05-2019 11:59-0400 Pulse Oximetry 97 % [facility] [place] 08-05-2019 11:59-0400 Respiratory Rate 16 /min [facility] [place] 08-04-2019 07:19-0400 BMI (Body Mass Index) 31.22 kg/m2 [facility] 08-04-2019 07:19-0400 Body weight 102.97 kg [facility] [place] 08-04-2019 07:19-0400 Height 181.6 cm [place] 07-15-2019 07:09-0400 BMI (Body Mass Index) 31.22 kg/m2 [address] 07-15-2019 07:09-0400 Body Temperature 97.5 [degF] [address] 07-15-2019 07:09-0400 Body weight 102.[address] Comment on above: wearing steel covered boots 07-15-2019 07:09-0400 BP Diastolic 86 mm[Hg] [address] 07-15-2019 07:09-0400 BP Systolic 145 mm[Hg] [address] 07-15-2019 07:09-0400 Height 181.[address] 07-15-2019 07:09-0400 Pulse (Heart Rate) 84 /min [address] 07-15-2019 07:09-0400 Pulse Oximetry 97 % [address] 07-15-2019 07:09-0400 Respiratory Rate 16 /min [address] Encounters Encounter Date Encounter Type Care Provider Facility Start: 06-28-2023 End: 06-28-2023 ambulatory JANY MEDEIROS Not Available Start: 03-22-2023 Chart abstracting Jany Medeiros [employer] Work Phone: [facility] Start: 03-22-2023 End: 03-22-2023 ambulatory JANY MEDEIROS Not Available Start: 03-22-2023 End: 03-22-2023 Office outpatient visit 25 minutes Jany Medeiros [employer] Work Phone: [facility] Comment on above: Obstructive sleep ap leslee syndrome (Primary Dx) Start: 01-25-2023 End: 01-25-2023 ambulatory JANY MEDEIROS Not Available Start: 06-22-2022 End: 06-23-[address] DOCTOR TAYLOR Facility:[facility] Start: 01-10-2022 End: 01-10-[address] ELADIO GARCIA Facility:[facility] Start: 07-14-2021 End: 07-15-[address] DOCTOR TAYLOR Facility:[facility] Start: 01-28-2021 End: 01-28-2021 ambulatory Lacey Luciano [facility] [employer] Other Start: 01-28-2021 Office outpatient vi sit 15 minutes Lacey Luciano [facility] Start: 08-04-2019 End: 08-05-2019 Evaluation and management of inpatient [facility] Start: 08-04-2019 End: 08-05-2019 Evaluation and management of inpatient [facility] Work Phone: [facility] Comment on above: Cancer of kidney, le ft (HCC) (Primary Dx) Start: 07-31-2019 End: 08-05-2019 Patient encounter procedure EDWIGE Stone PATEL [facility] Start: 07-31-2019 End: 08-04-2019 Subsequent hospital visit by physician [facility] Covid19 Pat Screening Schedule [facility] Pre-Admit Testing Start: 07-15-2019 End: 07-20-2019 Patient encounter procedure [facility] Start: 07-15-2019 End: 07-19-2019 Subsequent hospital visit by physician Willem Loredo Rm 1 [facility] PRE-ADMIT TESTING Procedures Date Procedure Procedure Detail Performing Clinician Start: 06-22-[address] ELADIO GARCIA Comment on above: Performed By: #### P TT, PT #### [facility] [address] [address] [address] Katelyn Forbes Start: 08-05-2019 DISCHARGE PATIENT LEANDRO WATKINS RAM Start: 08-05-2019 DIET GENERAL KATE BU CK Start: 08-05-2019 INITIATE OXYGEN THER APY PROTOCOL KATE RAM Start: 08-05-2019 Basic metabolic pane l calcium total KATE RAM Start: 08-05-2019 Blood count complete automated KATE RAM Start: 08-05-2019 Basic metabolic pane l calcium total Kate Ram Work Phone: Start: 08-05-2019 Blood count complete automated Katelara Ram Work Phone: Start: 08-05-2019 CATHETER REMOVAL LARISA Saw JO ANN Start: 08-05-2019 INTAKE AND OUTPUT LEANDRO RAM Start: 08-04-2019 Level iv surg pathol ogy gross&microscopic exam KATE RAM Start: 08-04-2019 Basic metabolic pane l calcium total KATE RAM Start: 08-04-2019 Blood count complete automated KATE RAM Start: 08-04-2019 PLACE INTERMITTENT PNEUMATIC COMPRESSION DEVICE KATE RAM Start: 08-04-2019 TELEMETRY MONITORING BR ALTHEA JO ANN Start: 08-04-2019 FULL CODE KATE JOSE CK Start: 08-04-2019 INITIATE OXYGEN THER APY PROTOCOL KATE RAM Start: 08-04-2019 INTAKE AND OUTPUT LEANDRO RAM Start: 08-04-2019 IP CONSULT TO MANAGER UTILITY AL MEDICINE KATE RAM Start: 08-04-2019 TOBACCO CESSATION EDUCATION KATE RAM Start: 08-04-2019 VITAL SIGNS KATE JOSE CK Start: 08-04-2019 Level iv surg pathol ogy gross&microscopic exam Kate Ram Work Phone: Start: 08-04-2019 Basic metabolic pane l calcium total Kate Ram Work Phone: Start: 08-04-2019 Blood count complete automated Kate Ram Work Phone: Start: 08-04-2019 PATIENT STATUS (FROM ED OR OR/PROCEDURAL) KATE RAM Start: 08-04-2019 TRANSFER PATIENT LARISA Saw JO ANN Start: 08-04-2019 Level iv surg pathol ogy gross&microscopic exam KATE RAM Start: 08-04-2019 End: 08-04-2019 Laparoscopy surg partial nephrectomy Kate Ram Work Phone: Start: 07-31-2019 COVID-19 EDWIGE ESCALONA Start: 07-31-2019 COVID Densaran kaur Work Phone: Start: 07-31-2019 COVID- EDWIGE ESCALONA Start: 07-15-2019 Antibody screen Sta 1 Start: 07-15-2019 Culture bacterial quanttative colony count urine KATE RAM Start: 07-15-2019 Urnls dip stick/tabl et rgnt auto w/o microscopy KATE RAM Start: 07-15-2019 Blood count complete auto&auto difrntl wbc KATE RAM Start: 07-15-2019 BUN AND CREATININE ONESIMO RAM Start: 07-15-2019 Electrolyte panel ONESIMOMora ROLAND RAM Start: 07-15-2019 TYPE AND SCREEN KATE RAM Start: 07-15-2019 Ecg routine ecg w/le ast 12 lds w/i&r KATE RAM Start: 07-15-2019 Culture bacterial quanttative colony count urine Kate Ram Work Phone: Start: 07-15-2019 Urnls dip stick/tabl et rgnt auto w/o microscopy Kate aRm Work Phone: Start: 07-15-2019 Assay of urea nitrog en quantitative Edgar Polo Work Phone: Start: 07-15-2019 Blood count complete auto&auto difrntl wbc Edgar Polo Work Phone: Start: 07-15-2019 Blood typing serologic abo Edgar Polo Work Phone: Start: 07-15-2019 Electrolyte panel Domin easton Polo Work Phone: Plan of Treatment Date Care Activity Detail Author Start: 06-10-2024 Screening for malign ant neoplasm of colon [facility] Healthcare Start: 08-12-2023 Influenza vaccination Influenza Vacc ine (#1) [facility] Comment on above: Postponed from 10/13 (Other Patient Reasons) Start: 03-22-2023 End: 03-22-2023 Patient encounter procedure 03/22/2023 10:30 AM EST Office Visit [facility] [address] [facility] [address] [place] [id number] Jany Medeiros, PROPERTY CLAIMS ADJUSTER [address] [facility] [address] [place] [address] [facility] Start: 08-04-2020 Creatinine measurement Creatinine mo nitoring [place], [place] Start: 08-04-2020 Potassium monitoring Potassium monit [place], [place] Start: 07-14-2020 Creatinine measurement Creatinine mo [place], [place] Start: 07-14-2020 Potassium monitoring Potassium monit [place], [place] Start: 10-14-2019 Influenza vaccination Flu vacc ine (Season Ended) [place], [place] Start: 08-04-2019 End: 08-04-2019 Hospital Encounter [facility] Comment on above: LEFT NEPHRECTOMY PAR TIAL ROBOTIC XI -WITH INTRAOP LAP U/S WITH FORTEC Start: 07-31-2019 End: 07-31-2019 Appointment 07/31/2019 Appointment Pre-Admission Testing [facility] PRE-ADMIT TESTING Start: 2019 Screening for malign ant neoplasm of colon Colon cancer screen colonoscopy [place], [place] Start: 2019 Shingles Vaccine (1 of 2) Shingles Vaccine (1 of 2) [place], [place] Start: 2009 Diabetes screen Diabetes screen [place], [place] Start: 2009 Lipid panel Lipid screen [place], [place] Start: 1988 DTaP/Tdap/Td vaccine (1 - Tdap) DTaP/Tdap/Td vaccine (1 - Tdap) [place], [place] Start: 1984 HIV screening HIV screen [place], [place] Start: 1969 Screening for malign ant neoplasm of colon [facility] End: 07-31-2019 COVID-19 COVID-19 Lab Routine One Time for 1 Occurrences starting 07/31/2019 until 07/31/2019 [place], [place] Comment on above: One Time for 1 Occur rences starting 07/31/2019 until 07/31/2019 Initiate Oxygen Ther apy Protocol Initiate Oxygen Therapy Protocol Respiratory Care Routine Daily until discontinued starting 08/04/2019 [place], [place] Comment on above: Daily until disconti nued starting 08/04/2019 Surgical Pathology Surgical Path ology Lab Routine Release Upon Ordering for 1 Occurrences starting 08/04/2019 [place], [place] Comment on above: Release Upon Orderin g for 1 Occurrences starting 08/04/2019 Immunizations Immunization Date Immunization Notes Care Provider Fa cility 10-31-2017 influenza, injectabl e, quadrivalent, preservative free Jany Medeiros PROPERTY CLAIMS ADJUSTER Work Phone: [facility] 10-31-2017 influenza virus vacc ine, unspecified formulation Jany Medeiros PROPERTY CLAIMS ADJUSTER Work Phone: [facility] 12-26-2013 influenza, seasonal, injectable, preservative free Jany Medeiros PROPERTY CLAIMS ADJUSTER Work Phone: [facility] Healthcare Payers Date Payer Category Payer Unknown [employer] [id number] 2022-Present [address] [address] [place] [address] [id number] 2014 Unknown [employer]EFIT xxxxxxxxx 2014-Present [phone] [address] [place] [address] xxxxxxxxx [id number] 1969 Unknown [id number] 6 1969 Unknown [id number] 7 1969 Unknown [id number] 7 1969 Unknown [id number] 3 1969 Unknown [id number] 3 1969 Unknown [id number] 3 1969 Unknown [id number] 59 1969 Unknown [id number] 59 1969 Unknown [id number] 59 1959 Unknown [id number] 1959 Unknown [id number] Social History Date Type Detail Facility Start: 08-04-2019 End: 01-24-2023 Tobacco smoking status NHIS Never smoker [place], [place] End: 07-14-2018 History of tobacco use Chews Tobacco [place] Start: 08-04-2019 End: 03-22-2023 Alcohol intake Current drinker of alcohol (finding) [place], [place] Start: 07-15-2019 Tobacco Comment patient uses n icotine gum [place], [place] Start: 1970 Sex Assigned At Not on file [place], [place] Exposure to SARS-CoV-2 (event) Unable to assess [place], [place] Start: 01-25-2023 End: 03-22-2023 Sex Assigned At [facility] [employer] Other Start: 01-24-2023 Tobacco use and exposure Smokeless tobacco non-user [facility] Start: 03-20-2023 End: 03-22-2023 Alcohol intake [facility] Medical Equipment Procedure Code Equipment Code Equipment Origin al Text Equipment Identifier Dates use 1 TEST STRIP to TEST BLOOD SUGAR once daily [id number] Start: 02-26-2023 History of Present illness Narrative 03-22-2023 Jany Medeiros NP - 03/22/2023 10:30 AM EST Note Date & Type Note Facility 03-22-2023 History of Presen t illness Narrative Subjective Patient ID: Nikita Gastelum is a 53 y.o. male who presents for CPAP. Pt is here to poss get a new cpap machine he did have a sleep study done back in 2019 but does not know if that was good enough to get a new machine Current Outpatient Medications on File Prior to Visit Medication Sig Dispense Refill acyclovir (Zovirax) 800 MG tablet take 1 tablet by mouth every morning 30 tablet 0 aspirin 81 MG EC tablet 1 (one) time each day at the same time azithromycin (Zithromax) 250 MG tablet Take 2 tablets first day then 1 tablet for the rest of the days 6 tablet 0 azithromycin (Zithromax) 250 MG tablet 2 tabs x 1 day, 1 tab daily x 4 days 6 tablet 0 cholecalciferol (Vitamin D-3) 50 MCG (2000 UT) tablet 1 (one) time each day at the same time dilTIAZem CD (Cardizem CD) 180 MG 24 hr capsule Take 180 mg by mouth in the morning. glucose blood (True Metrix Blood Glucose Test) test strip use 1 TEST STRIP to TEST BLOOD SUGAR once daily 100 strip 3 losartan (Cozaar) 100 MG tablet Take 100 mg by mouth in the morning. metoprolol succinate XL (Toprol-XL) 25 MG 24 hr tablet Take 1 tablet (25 mg) by mouth in the morning and 1 tablet (25 mg) before bedtime. 180 tablet 0 [place] 3-6-9 capsule as directed Orally omeprazole (PriLOSEC) [address] capsule 1 (one) time each day at the same time No current facility-administered medications on file prior to visit. No Known Allergies Social History Tobacco Use Smoking status: Never Smokeless tobacco: Never Substance Use Topics Alcohol use: Yes Alcohol/week: 3.0 standard drinks of alcohol Types: 3 Standard drinks or equivalent per week Family History Problem Relation Name Age of Onset Diabetes Father Hypertension Father Heart disease Father Stroke Father Past Medical History: Diagnosis Date Borderline hyperlipidemia (CMS/HCC) COVID 02/12/2022 Positive Genital herpes Hiatal hernia 07/14/2021 xray shows new hernia History of CT scan of abdomen 06/22/2022 No evidence of tumor recurrence of metastasis History of CT scan of brain 01/10/2022 shows no acute infract possible small lesion could be blood vesse. Positive for sinusitis acute on chronic History of CT scan of chest 01/10/2022 No acute infiltrate or evidence of cardiac decompensation Hyperlipidemia (CMS/HCC) Hypertension (CMS/HCC) Kidney stones Large hiatal hernia 07/14/2021 Recurrent genital herpes Renal mass SVT (supraventricular tachycardia) Past Surgical History: Procedure Laterality Date APPENDECTOMY CT GUIDED PERCUTANEOUS BIOPSY RENAL LEFT Left 02/19/2019 CT GUIDED PERCUTANEOUS BIOPSY RENAL LEFT 02/19/2019 HAND SURGERY Right PARTIAL NEPHRECTOMY Left 08/04/2019 RENAL BIOPSY Left 02/13/2019 Visit Vitals Smoking Status Never Review of Systems Constitutional: Positive for fatigue. HENT: Negative. Eyes: Negative. Respiratory: Negative. Cardiovascular: Negative. Gastrointestinal: Negative. Genitourinary: Negative. Musculoskeletal: Negative. Skin: Negative. Neurological: Negative. Psychiatric/Behavioral: Negative. Hematological: Negative. Endocrine: Negative. Allergic/Immunologic: Negative. Objective Physical Exam Constitutional: Appearance: Normal appearance. HENT: Head: Normocephalic. Right Ear: External ear normal. Left Ear: External ear normal. Nose: Nose normal. Mouth/Throat: Mouth: Mucous membranes are moist. Pharynx: Oropharynx is clear. Eyes: Extraocular Movements: Extraocular movements intact. Conjunctiva/sclera: Conjunctivae normal. Pupils: Pupils are equal, round, and reactive to light. Pulmonary: Effort: Pulmonary effort is normal. Breath sounds: Normal breath sounds. Abdominal: Palpations: Abdomen is soft. Musculoskeletal: General: Normal range of motion. Skin: General: Skin is warm and dry. Neurological: General: No focal deficit present. Mental Status: He is alert and oriented to person, place, and time. Psychiatric: Mood and Affect: Mood normal. Behavior: Behavior normal. Thought Content: Thought content normal. Judgment: Judgment normal. Assessment/Plan 1. Obstructive sleep apnea syndrome This pt is seen today in order to be able to obtain a new Cpap for home use. The 04/09/19 Sleep study results reviewed today. He underwent a one night home sleep study. The results show severe sleep apnea. He was previously started on Cpap with a pressure of 9 The machine had to be returned dt change of his insurance. He has new insurance at this time and is in need of a new machine. He had a ramp of 4, pressure of 9. He uses nasal pillows. See scanned sleep study report. No follow-ups on file. documented in this encounter [facility] Instructions 03-22-2023 Patient Instructions Note Date & Type Note Facility 03-22-2023 Instructions Jany Medeiros NP - 03/22/2023 10:30 AM EST Cpap orders sent to [facility] documented in this encounter [facility] Evaluation note 01-28-2021 Note Date & Type Note Facility 01-28-2021 Evaluation note Encounter Date Diagnosis Assessment Notes Jan, Contact with and (suspected) exposure to other viral communicable diseases (ICD-10 - Z20.828) Jan, COVID-19 (ICD-10 - U07.1) Drink plenty fluids, get plenty of rest. Take the prednisone as prescribed until gone. Take the Zithromax as prescribed until gone. Use the albuterol inhaler as prescribed as needed for cough or shortness of breath. Follow-up with your family physician if no improvement in 2 to 3 days. You must self isolate for 10 days after the onset of your symptoms. Jan, Other Additional time spent conducting pre-visit phone call, screening for symptoms, instructions on social distancing, application and removal of PPE, and cleaning of examination room, equipment and supplies was preformed. Patient education given for testing methodology and results. Patient care instructions given in writting by [facility] Care At Home document. path intelligence Other Evaluation note Note Date & Type Note Facility Evaluation note Diagnosis Obstructive sleep apnea syndrome- Primary Obstructive sleep apnea (adult) (pediatric) documented in this encounter [facility] History general Narrative - Reported Note Date & Type Note Facility History general Narrative - Reported Type Medical History hypertension Medical History Acid reflux Medical History GERD (gastroesophageal reflux di sease) Surgical History o-3 oblasion Surgical History apedectomy [employer] Other Discharge Instructions * Discharge Instr - Activity* Hui Slater RN - 08/05/2019 2:39 PM EDT No lifting anything heavier than 10 lbs for one week May shower, no tub baths. Do not enter any swimming pools, lakes, hot tubs Take all medications as prescribed- may resume Cozaar in morning * Discharge Instr - Diet* Hui Slater RN - 08/05/2019 2:39 PM EDT ? Good nutrition is important when healing from an illness, injury, or surgery. Follow any nutrition recommendations given to you during your hospital stay. ? If you were given an oral nutrition supplement while in the hospital, continue to take this supplement at home. You can take it with meals, in-between meals, and/or before bedtime. These supplements can be purchased at most local grocery stores, pharmacies, and [employer]. ? If you have any questions about your diet or nutrition, call the hospital and ask for the dietitian. General Diet * Attachments The following attachments cannot be sent through Care Everywhere. * Nephrectomy: Laparoscopic: Post-op (Maltese) * Smokeless Tobacco: Quitting (Maltese) * docusate (oral/rectal) (Maltese) * acetaminophen and oxycodone (Maltese) documented in this encounter History of Present Illness * Hui Slater RN - 08/05/2019 5:29 PM EDT Patient discharged to home. Discharge instructions given and explained to patient, signature obtained. All patient's belongings packed and taken with patient at time of discharge. Patient stable for discharge. * Edith Murphy - 08/05/2019 4:58 PM EDT CLINICAL PHARMACY NOTE: MEDS TO BEDS [facility] Select Patient?: No Total # of Prescriptions Filled: 1 The following medications were delivered to the patient: PERCOCET 5-325 Total # of Interventions Completed: 0 Time Spent (min): 30 Additional Documentation: PT BOUGHT OTC BOTTLE OF STOOL SOFTENER 100MG * Meghann Mai MD - 08/05/2019 3:[address] [facility] IN-PATIENT SERVICE [facility] Progress Note 08/05/2019 3:27 PM Name: Nikita Gastelum Acct: [id number] Room: IP Day: 1 Admit Date: 08/04/2019 7:09 AM PCP: Patrick Terrell DO Code Status: Full Code Subjective: C/C: Renal cancer Interval History Status: Postoperatively patient is having difficulty voiding although he is ambulatory Denies pain at surgical site today Blood pressure 134/79, heart rate 66 Brief History: 49-year-old male who was found to have a renal cell cancer His reports the renal mass was discovered while undergoing evaluation/cystoscopy for possible kidney stones They have elected surgical treatment They are now postop: Robotic-Assisted Laparoscopic Left Partial Nephrectomy with Intra-Operative Ultrasound. The patient is having moderate incisional pain and cramping He reports bitemporal headaches He believes he may be going through caffeine and nicotine withdraw He does chew Database has included: WBC 13.6High Glucose 154High BPs have been in the 150s/100s Review of Systems: Constitutional: negative for chills, fevers, sweats Respiratory: negative for cough, dyspnea on exertion, shortness of breath, wheezing Cardiovascular: negative for chest pain, chest pressure/discomfort, lower extremity edema, palpitations Gastrointestinal: negative for abdominal pain, constipation, diarrhea, nausea, vomiting Neurological: negative for dizziness, headache Having difficulty voiding Medications: Allergies: No Known Allergies Current Meds: Scheduled Meds: [Held by provider] losartan 100 mg Oral Daily aspirin 81 mg Oral Daily dilTIAZem 180 mg Oral Nightly metoprolol succinate 25 mg Oral BID pantoprazole 40 mg Oral QAM AC sodium chloride flush 10 mL Intravenous 2 times per day docusate sodium 100 mg Oral BID nicotine 1 patch Transdermal Daily Continuous Infusions: PRN Meds: sodium chloride flush, acetaminophen OR acetaminophen, ondansetron, oxyCODONE-acetaminophen OR oxyCODONE-acetaminophen, morphine OR morphine, hydrALAZINE Data: Past Medical History: has a past medical history of Anesthesia complication, GERD (gastroesophagealreflux disease), Heart palpitations, Hypertension, Insomnia, KATYA on CPAP, Renal stones, and SVT (supraventricular tachycardia) ([facility]). Social History: reports that he has never smoked. He quit smokeless tobacco use about 12 months ago. His smokeless tobacco use included chew. He reports current alcohol use of about 24.0 standard drinks of alcohol per week. He reports that he does not use drugs. Family History: Family History Problem Relation Age of Onset Prostate Cancer Father Heart Attack Father Diabetes Father Brain Cancer Maternal Grandfather Heart Attack Paternal Grandfather Vitals: BP 134/79 Pulse 66 Temp 98.6 F (37 C) (Oral) Resp 16 Ht 5' 11.5 (1.816 m) Wt 227 lb (103kg) SpO2 97% BMI 31.22 kg/m Temp (24hrs), Av.7 F (37.1 C), Min:98.1 F (36.7 C), Max:99.9 F (37.7 C) No results for input(s): POCGLU in the last 72 hours. I/O (24Hr): Intake/Output Summary (Last 24 hours) at 08/05/2019 1527 Last data filed at 08/05/2019 1449 Gross per 24 hour Intake 2517 ml Output 4300 ml Net -1783 ml Labs: Hematology: Recent Labs 08/04/19 1444 08/05/19 0634 WBC 13.6* 16.5* RBC 5.12 4.93 HGB 14.7 14.1 HCT 43.7 43.6 MCV 85.4 88.4 MCH 28.7 28.6 MCHC 33.6 32.3 RDW 12.8 12.7 PLT 221 128* MPV 9.2 10.1 Chemistry: Recent Labs 08/04/19 1444 08/05/19 0634 NA 138 137 K 3.9 4.3 CL 99 101 CO2 25 23 GLUCOSE 154* 130* BUN 13 11 CREATININE 0.86 0.83 ANIONGAP 14 13 LABGLOM >60 >60 GFRAA >60 >60 CALCIUM 8.9 9.2 No results for input(s): PROT, LABALBU, LABA1C, V0SXJSM, I6RYYMS, FT4, TSH, AST, ALT, LDH, GGT, ALKPHOS, LABGGT, BILITOT, BILIDIR, AMMONIA, AMYLASE, LIPASE, LACTATE, CHOL, HDL, LDLCHOLESTEROL, CHOLHDLRATIO, TRIG, VLDL, QBX35DW, PHENYTOIN, PHENYF, URICACID, POCGLU in the last 72 hours. ABG:No results found for: POCPH, PHART, PH, POCPCO2, XJO3HDD, PCO2, POCPO2, PO2ART, PO2, POCHCO3, JCL9CPM, HCO3, NBEA, PBEA, BEART, BE, THGBART, THB, ENP4LNL, CLVH6XGH, L5WAECME, O2SAT, FIO2 Lab Results Component Value Date/Time SPECIAL NOT REPORTED 07/15/2019 07:59 AM Lab Results Component Value Date/Time CULTURE NO GROWTH 07/15/2019 07:59 AM Radiology: No results found. Physical Examination: General appearance: alert, cooperative and no distress, ambulatory Mental Status: oriented to person, place and time and normal affect Lungs: clear to auscultation bilaterally, normal effort Heart: regular rate and rhythm, no murmur Abdomen: soft, nontender, nondistended, normal bowel sounds, no masses, hepatomegaly, splenomegaly Extremities: no edema, redness, tenderness in the calves Skin: Incisions appear clean and dry Assessment: Hospital Problems Last Modified POA * (Principal) Cancer of kidney, left (HCC) 08/04/2019 Yes GERD (gastroesophageal reflux disease) 08/04/2019 Yes Hypertension 08/04/2019 Yes Insomnia 08/04/2019 Yes KATYA on CPAP 08/04/2019 Yes Overview Signed 08/04/2019 6:34 PM by Patrick Dawson, DO uses machine seldom (just started machine 1 month ago 06/2019) Tobacco chew use 08/04/2019 Yes Nicotine withdrawal 08/04/2019 Yes Plan: 1. Resume home blood pressure medicines Cardizem [id number], keep Cozaar on hold 2. Urology will evaluate for difficulty voiding 3. Discharge plan when cleared by primary team urology Meghann Mai MD 08/05/2019 3:27 PM * Josephine Drummond - 08/04/2019 5:10 PM EDT Transitions of Care Pharmacy Service Medication Review The patient's list of current home medications has been reviewed. Source(s) of information: patient, spouse, [facility] ([place], [place]) Based on information provided by the above source(s), I have updated the patient's home med list asdescribed below. I changed or updated the following medications on the patient's home medication list: Discontinued Trazodone 50mg - patient choice Added Acyclovir 800mg - 1QD PRN breakouts Adjusted Omeprazole 10mg changed to 20mg (OTC) changed from 1QD to 1BID Metoprolol Succinate 50mg changed to 25mg (1BID) Other Notes None Please feel free to call me with any questions about this encounter. Thank you. This note will be reviewed and co-signed by the Transitions of Care Pharmacist. The pharmacist willreview inpatient orders and contact the physician about any discrepancies. Josephine Drummond, pharmacy informatics manager [facility] Service Prior to Admission medications Medication Sig Start Date End Date Taking? Authorizing Provider oxyCODONE-acetaminophen (PERCOCET) 5-325 MG per tablet Take 1 tablet by mouth every 6 hours as needed for Pain for up to 5 days. 08/04/19 08/09/19 Yes Kate Ram MD docusate sodium (COLACE) 100 MG capsule Take 1 capsule by mouth 2 times daily 08/04/19 09/03/19 Yes Kate Ram MD omeprazole (PRILOSEC OTC) 20 MG tablet Take 20 mg by mouth daily acyclovir (ZOVIRAX) 800 MG tablet Take 800 mg by mouth daily as needed (breakouts) metoprolol succinate (TOPROL XL) 25 MG extended release tablet Take 25 mg by mouth 2 times daily losartan (COZAAR) 100 MG tablet Take 100 mg by mouth daily dilTIAZem (CARDIZEM CD) 180 MG extended release capsule Take 180 mg by mouth daily aspirin 81 MG EC tablet Take 81 mg by mouth daily Associated attestation - Andreea Duran RPH - 08/04/2019 5:49 PM EDT Pt Name: Nikita Gastelum Birthdate 1970 I have reviewed the patient's home medication list and current inpatient orders and agree with the documentation provided by the med rec pharmacy informatics manager. Discrepancies on current hospital orders that need to be addressed by a physician/nurse practitioner: Medication Action Requested trazodone Patient no longer takes, Perfect Serve sent to Dr. Ram to discontinue inpatient order Please feel free to call me with any questions about this encounter. Thank you. Andreea Duran, PharmD Pharmacy Medication Accuracy Review Service * Candice Booker, LEE - 08/04/2019 2:13 PM EDT Pt admitted to room 2023 Oriented to room, call light and bed mechanics. Side rails up x2. Call light within reach. Orders reviewed. * Leandra Castañeda RN - 08/04/2019 2:07 PM EDT 1350-heads up called to receiving floor 1407-Patient transported to room in no distress on monitor with all belongings, report given at bedside. 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 Advance Directives and Living Will Power of Consumer Services Advisor Latest Code Status on File Code Status Date Activated Date Inactivated Comments Full Code 08/04/2019 2:09 PM Documents on File Type Date Recorded Patient Windmill Mechanic Expl anation Advance Directives and Living Will Power of Consumer Services Advisor Latest Code Status on File Code Status Date Activated Date Inactivated Comments Full Code 08/04/2019 2:09 PM Summary Purpose Family History No Family History Records FoundNo Family History Records FoundNo Family History Records FoundNo Family History Records FoundNo Family History Records FoundNo Family History Records Found Additional Source Comments Reason for Visit (unrecogniz ed section and content) Status Reason Specialty Diagnoses / Procedures Referre d By Contact Referred To Contact Diagnoses Left renal mass DX LEFT RENAL MASS Procedures [place] LAP,PARTIAL NEPHRECTOMY LEFT NEPHRECTOMY PARTIAL ROBOTIC XI -WITH INTRAOP LAP U/S WITH Kate Ortega MD [address] [facility] [address] [place] [address] [facility] Reason Comments CPAP (unrecognized sect ion and content) No Status Records FoundNo Status Records FoundNo Status Records FoundNo Status Records FoundNo Status Records FoundNo Status Records Found INFORMATION SOURCE (unrecogn ized section and content) DATE CREATED AUTHOR 08/30/2019 [facility] DATE CREATED AUTHOR AUTHOR'S ORGANIZ ATION 08/30/2019 [facility] DATE CREATED AUTHOR AUTHOR'S ORGANIZ ATION 03/27/2020 [facility] DATE CREATED AUTHOR AUTHOR'S ORGANIZ ATION 05/27/2021 [facility] d[facility] Specialist DATE CREATED AUTHOR AUTHOR'S ORGANIZ ATION 06/26/2022 [facility] DATE CREATED AUTHOR AUTHOR'S ORGANIZ ATION 06/30/2023 [facility] d[facility] Specialists EPIC Care Teams (unrecognized sec tion and content) Associate Spa Director Relationship Specialty Start Date End Date Eladio Garcia MD [address] [address] PCP - General Family Medicine 06/20/22 Associate Spa Director Relationship Specialty Start Date End Date Eladio Garcia MD [address] [facility] [address] [place] [address] PCP - General Family Medicine 06/20/22 FOR RECORDS PERTAINING TO PATIENTS WHO ARE OR HAVE BEEN ENROLLED IN A CHEMICAL DEPENDENCY/SUBSTANCEABUSE PROGRAM, SOME INFORMATION MAY BE OMITTED. This clinical summary was aggregated from multiple sources. Caution should be exercised in using it in the provision of clinical care. This summary normalizes information from multiple sources, and as a consequence, information in this document may materially change the coding, format and clinical context of patient data. In addition, data may be omitted in some cases. CLINICAL DECISIONS SHOULD BE BASED ON THE PRIMARY CLINICAL RECORDS. [facility] [employer] [facility]. provides no warranty or guarantee of the accuracy or completeness of information in this document.
== END 2023-07-31 16:49 | disposition home or self-care (01) ==
LOC: LAB 16:48
PROVIDERS: PCP Family Medicine; Visit Provider Urology
DX: C64.9 Malignant neoplasm of unspecified kidney, except renal pelvis (principal); R31.0 Gross hematuria; N28.89 Other specified disorders of kidney and ureter
CPT/HCPCS: 36415; 71046; 84153